=== PATIENT | female | born 1950 | race Caucasian/White ===

== ENCOUNTER 2021-03-22 20:34 | Observation (INO) | payer MEDICARE, MEDICAID, SELFPAY ==
[2021-03-22 20:35] VITALS: BP 138/76; PULSE 89; RESP 18; TEMP 36.6; O2SAT 97; BMI 22.4
--- NOTE | 2021-03-22 21:21 | RAD_ITS ---
INDICATION: Cough EXAMINATION/TECHNIQUE: X-RAY - XR Chest 1 View COMPARISON: None. FINDINGS: The lungs are clear. Tortuous and calcified thoracic aorta. The heart is not enlarged. No pleural effusion or pneumothorax. No acute osseous abnormalities. RAD/Chest 1 View (Portable) IMPRESSION: No acute radiographic abnormalities. Electronically Signed: Fer Devine MD at 22:47 EDT Tel , Service support ,
--- NOTE | 2021-03-22 21:21 | EKG12_ITS ---
Test Reason : DYSRYTHMIA Blood Pressure : / mmHG Vent. Rate : 078 BPM Atrial Rate : 078 BPM P-R Int : 130 ms QRS Dur : 118 ms QT Int : 404 ms P-R-T Axes : 041 008 005 degrees QTc Int : 460 ms Normal sinus rhythm Incomplete right bundle branch block Nonspecific T wave abnormality Abnormal ECG Confirmed by RO LOPEZ, JERILYN ([id number]), purchase request editor JOSE L JUAREZ ([id number]) on 03/26/2021 1:07:27 PM Referred By: AYDIN Confirmed By:JERILYN STARR MD
--- NOTE | 2021-03-22 21:21 | CT_ITS ---
EXAMINATION : Head CT w/out contrast HISTORY : Altered mental status COMPARISON : None. TECHNIQUE : Multiple contiguous axial images were obtained from the skull base to the vertex without intravenous contrast. A radiation dose optimization technique was used for this scan. FINDINGS : There is no evidence for acute intracranial hemorrhage, mass effect, or midline shift. There is no extra-axial fluid collection. There are periventricular white matter changes consistent with chronic microvascular ischemic disease. There is sulcal widening and ventricular enlargement consistent with cerebral atrophy. There is normal weaver-white differentiation, without CT evidence of acute ischemia or infarct. 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 The skull base and calvarium are unremarkable. The orbits are unremarkable. The paranasal sinuses are clear. The mastoid air cells are well-aerated. The soft tissues are unremarkable. CT/Brain/Head without Contrast IMPRESSION: No acute intracranial abnormality. 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 Chronic involutional and ischemic changes of the brain. Electronically Signed: Fer Devine MD at 22:48 EDT Tel , Service support ,
[2021-03-22 21:47] LABS: Absolute Lymphocyte Count 2.48 X10^3/uL (0.83-4.51); Absolute Neutrophil Count 2.7 X10^3/uL (2.0-7.7); Basophil# 0.05 X10^3/uL; Basophil% 0.8 % (0-1); Eosinophil# 0.42 X10^3/uL; Eosinophils% 6.7 % (0-5); Hematocrit 44.6 % (37-47); Hemoglobin 14.6 g/dL (12.0-15.0); Lymphocyte # 2.48 X10^3/ul (0.83-4.51); Lymphocyte % 39.7 % (19-41); Mean Corp Hgb Conc 32.7 g/dL (32-36); Mean Corpuscular Hgb 30.7 pg (27.0-32.0); Mean Corpuscular Volume 93.9 fL (81-99); Mean Platelet Vol. 10.3 fl (6.2-12.0); Monocyte% 9.6 % (0-10); NRBC Flagged by Analyzer 0 % (0-5); Neutrophil # 2.68 X10^3/uL (2.7-7.7); Platelet Count 250 K/mm3 (150-450); RBC Distribution Width CV 13.5 % (11.6-14.6); RBC Distribution Width SD 46.4 fl (35.1-43.9); Red Blood Count 4.75 M/mm3 (4.2-5.4); White Blood Count 6.2 K/mm3 (4.4-11.0)
[2021-03-22 21:59] VITALS: BP 139/83; PULSE 82; RESP 16; O2SAT 99
[2021-03-22 21:59] LABS: ALB/GLOB Ratio 0.8 RATIO (0.9-2.4); AST(SGOT) 17 U/L (15-37); Alanine Aminotransfer ALT/SGPT 10 U/L (13-56); Albumin, Serum 3.4 g/dL (3.2-5.0); Alkaline Phosphatase 117 U/L (45-117); Anion Gap 3 (5-15); BUN 8 mg/dL (7-18); BUN/Creat Ratio 7.8 RATIO (10-20); Calcium,Total 9.4 mg/dL (8.5-10.1); Chloride 106 mmol/L (98-107); Creatinine, Serum 1.03 mg/dL (0.55-1.02); EST Glomerular Filtration Rate 56 mL/min (>60); Est Glom Filt Rate - Afr Amer 68 mL/min (>60); Estimated Creatinine Clearance 39.15 ml/min; Glucose 102 mg/dL (74-106); Potassium 3.5 mmol/L (3.5-5.1); Protein, Total 7.4 g/dL (6.4-8.2); Sodium Level 139 mmol/L (136-145)
[2021-03-22 22:00] VITALS: PULSE 81; RESP 14; O2SAT 98
[2021-03-22 22:50] LABS: Bacteria 0 SEEN /hpf (None Seen); Mucous, Urine 0 SEEN /hpf (<or=2+); Red Blood Cells-Urine 0 SEEN /hpf (0-5); White Blood Cells 0 SEEN /hpf (0-5)
[2021-03-22 22:51] LABS: Color, Urine Yellow (Yellow); Glucose, Dipstick Normal (Normal); Ketone-Dipstick Negative (Negative); Leukocyte Esterase-Dipstick Negative /ul (Negative); Nitrite-Dipstick Negative (Negative); Occult Blood-Urine Negative /ul (Negative); Protein-Dipstick Negative (Negative); Urine Bilirubin Dipstick Negative (Negative); Urine Clarity Sl. Cloudy (Clear); Urine Urobilinogen Normal (Normal)
[2021-03-22 22:56] LABS: Squamous Epithelial Cells - UA 0-5 SEEN /hpf (5-10)
[2021-03-22 23:00] VITALS: BP 116/74; PULSE 82; RESP 15; O2SAT 94
--- NOTE | 2021-03-22 23:36 | EX.ED.DYSGE1 ---
HPI History of Present Illness Chief Complaint: Confusion Informant: patient and EMS Onset/Context/Timing Context: Gradual Onset Timing: Continuous Quality: Confused Location: Generalized Worsened by: Nothing Relieved by: Nothing Narrative Narrative: Patient presents with confusion that became worse today. Patient was found wandering outside. Patient lives at home with family however the family states that patient has been wandering off more frequently. Family states that patient is getting more difficult to care for at home. Patient is confused and is a poor historian. Patient does not know why she is here. [facility] Medical History COPD (chronic obstructive pulmonary disease) Dementia Home Medications Aricept 03/22/21 [History Last Taken Unknown] albuterol sulfate 2.5 mg INHALATION Q4H PRN 03/22/21 [History Last Taken Unknown] alprazolam [Xanax] 1 mg PO TID 03/22/21 [History Last Taken Unknown] fluticasone propion-salmeterol [Advair HFA] 1 - 2 puff INHALATION BID 03/22/21 [History Last Taken Unknown] memantine 10 mg PO BID 03/22/21 [History Last Taken Unknown] pregabalin 100 mg PO BID 03/22/21 [History Last Taken Unknown] Allergy/AdvReac Type Severity Reaction Status Date / Time Penicillins Allergy PT UNSURE Verified 03/22/21 20:39 OF REACTION tramadol [From Ultram] AdvReac Other Verified 03/22/21 22:08 Social History Smoking Status: Current every day smoker tobacco type: cigarettes ROS ROS ED Review of Systems ROS Unobtainable: due to mental condition EXAM Physical Exam Const Vital Signs: 03/22/21 20:35 03/22/21 21:59 03/22/21 22:00 Temperature 97.8 F Temperature Source Oral Pulse Rate 89 82 81 Respiratory Rate 18 16 14 Blood Pressure 138/76 H 139/83 H Blood Pressure Mean 96 101 Pulse Ox 97 99 98 Oxygen Delivery Method Room Air Room Air Room Air 03/22/21 23:00 03/23/21 00:00 03/23/21 00:17 Temperature 97.9 F Temperature Source Temporal Pulse Rate 82 82 81 Respiratory Rate 15 12 14 Blood Pressure 116/74 126/77 H 126/77 H Blood Pressure Mean 88 93 93 Pulse Ox 94 92 93 Oxygen Delivery Method Room Air Room Air Room Air Positive well nourished and well developed General Appearance ED: well developed HEENT Reports moist mucous membranes Neck supple and no JVD Resp normal respiratory effort and clear to auscultation bilaterally Cardio regular rate and regular rhythm GI normal to inspection, nondistended, normoactive bowel sounds and non-tender Palpation: soft Neuro CN's II-XII intact bilaterally and no sensory deficits noted Neuro Narrative: Patient is alert and oriented to person and place only. Sensorium / Orientation: alert and orientation impaired Motor Exam: strength 5/5 throughout MDM MDM MDM Narrative Medical decision making narrative: CT scan of the brain was obtained. There is no acute intracranial abnormality. This was interpreted by the radiologist and reviewed by myself. Portable 1 view chest x-ray was obtained. On my interpretation, lung disla are clear. There is normal cardiac silhouette. Bony thorax is normal. There is no acute process noted. Radiologist also interpreted the x-ray and agrees. EKG was obtained. On my interpretation, it showed a normal sinus rhythm with a rate of 78. UT interval, QRS interval, and QTc intervals were all normal. [place] was normal. There is an incomplete right bundle branch block. There are no acute ST or T wave changes. CBC and comprehensive metabolic profile were obtained were within normal limits. Urinalysis does not show any evidence of urinary tract infection. Family reports patient is unable to care for herself at home and they are unable to care for her at home. Case was discussed with the hospitalist for admission for placement in a long-term. Patient will be admitted for observation. Lab Data Attestation: I reviewed the patient's lab results. Labs: Laboratory Results - last 24 hr 03/22/21 03/22/21 03/22/21 20:45 20:45 22:45 WBC 6.2 RBC 4.75 Hgb 14.6 Hct 44.6 MCV 93.9 MCH 30.7 MCHC 32.7 RDW Std Deviation 46.4 H RDW Coeff of Kendall 13.5 Plt Count 250 MPV 10.3 Immature Gran % (Auto) 0.200 Neut % (Auto) 43.0 L Lymph % (Auto) 39.7 [place] % (Auto) 9.6 Eos % (Auto) 6.7 H Baso % (Auto) 0.8 Absolute Neuts (auto) 2.7 Absolute Lymphs (auto) 2.48 Nucleated RBC % 0 Sodium 139 Potassium 3.5 Chloride 106 Carbon Dioxide 30.0 Anion Gap 3 L BUN 8 Creatinine 1.03 H Estim Creat Clear Calc 39.15 Est GFR (MDRD) Af Amer 68 Est GFR (MDRD) Non-Af 56 L BUN/Creatinine Ratio 7.8 L Glucose 102 Calcium 9.4 Total Bilirubin 0.40 AST 17 ALT 10 L Alkaline Phosphatase 117 Total Protein 7.4 Albumin 3.4 Globulin 4.0 Albumin/Globulin Ratio 0.8 L Urine Color Yellow Urine Clarity Sl. Cloudy Urine pH 6.0 Ur Specific [place] 1.010 Urine Protein Negative Urine Glucose (UA) Normal Urine Ketones Negative Urine Occult Blood Negative Urine Nitrite Negative Urine Bilirubin Negative Urine Urobilinogen Normal Ur Leukocyte Esterase Negative Urine RBC 0 SEEN Urine WBC 0 SEEN Ur Squamous Epith Cells 0-5 SEEN Urine Bacteria 0 SEEN Urine Mucus 0 SEEN Radiography Chest X-Ray - ED: 1 View, Read by ED Physician, Read by Radiologist and Normal Diagnostic Testing: Radiology Impression Brain CT 03/22/21 21:21 IMPRESSION: No acute intracranial abnormality. 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 Chronic involutional and ischemic changes of the brain. Electronically Signed: Fer Devine MD at 22:48 EDT Tel , Service support , Chest X-Ray 03/22/21 21:21 IMPRESSION: No acute radiographic abnormalities. Electronically Signed: Fer Devine MD at 22:47 EDT Tel , Service support , EKG Initial EKG: Attestation: I personally reviewed and interpreted this EKG as follows: Interpretation: Sinus Rhythm (78), No Acute Injury Pattern, RBBB (Incomplete) and Non-Specific ST Changes Prior EKG tracings: not available for review Treatment and Re-Evaluation Vital Sign Attestation:: Vital signs were reviewed prior to admission. They are all stable. Discharge Plan Triage Chief Complaint: Confusion Other Complaint: Mental Health ED Provider: Wilmer Owen Dx/Rx/DC Orders Clinical Impression: Dementia Prescriptions: No Action Aricept RF: 0 albuterol sulfate 2.5 mg /3 mL (0.083 %) Solution For Nebulization 2.5 mg INHALATION Q4H PRN (Reason: Wheezing) RF: 0 alprazolam [Xanax] 1 mg Tablet 1 mg PO TID RF: 0 memantine 5 mg tablet 10 mg PO BID RF: 0 pregabalin 100 mg capsule 100 mg PO BID RF: 0 Advair HFA 115-21 mcg/actuation HFA aerosol inhaler 1 - 2 puff INHALATION BID RF: 0 Primary Care Provider: Rehan Connelly Referrals: Rehan Connelly DO [Primary Care Provider] - Disposition Disposition: Acute Care [facility]
[2021-03-23] VITALS (9 sets, daily range): BP systolic 125–152; BP diastolic 68–90; PULSE 79–96; RESP 12–16; TEMP 36.4–36.7; O2SAT 92–97; BMI 21.7
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
--- NOTE | 2021-03-23 01:31 | ED.RN ---
left message for family to let them know that patient is being admitted
[2021-03-23] MEDS: Acetaminophen 325 MG Tablet 650 MG PO ×3 (01:53→15:02)
[2021-03-23] MEDS: Budesonide Respules 0.5 MG/2 ML AMPUL.NEB. INHALATION (07:36)
[2021-03-23] MEDS: Albuterol 2.5 MG/3 ML VIAL.NEB. INHALATION ×2 (07:36→13:31)
[2021-03-23 08:33] LABS: Thyroid Stim Hormone (TSH) 1.64 uIU/mL (0.358-3.74)
[2021-03-23] MEDS: Memantine Hydrochloride 10 MG Tablet PO (09:36)
[2021-03-23] MEDS: Enoxaparin 40 MG/0.4 ML Syringe SC (09:37)
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
--- NOTE | 2021-03-23 10:15 | PN.HOSP_ITS ---
Documented by User: Fan BAEZA 03/23/21 10:29 Subjective Subjective Patient is a 70-year-old female comfortably resting in bed and eating breakfast, alert and oriented x1 (person). Patient is able to converse casually and is pleasant, however speech is tangential. It is unclear how much patient under stands about her current condition, therefore insight is limited. Objective Data Objective Data Vital Signs: Vital Signs Temp Pulse Resp BP Pulse Ox 98.0 F 96 16 152/90 H 93 03/23/21 09:05 03/23/21 09:05 03/23/21 09:05 03/23/21 09:05 03/23/21 09:05 Oxygen Delivery Method Room Air Weight: 103 lb 9.876 oz Body Mass Index (BMI) 21.7 Intake & Output: Intake and Output for Last 24 Hours 03/21/21 03/22/21 03/23/21 23:59 23:59 23:59 Intake Total 500 / 500 Balance 500 / 500 Lab / Micro Data Result Diagrams: 03/22/21 20:45 03/22/21 20:45 Labs: Laboratory Results - last 24 hr 03/22/21 03/22/21 03/22/21 20:45 20:45 22:45 WBC 6.2 RBC 4.75 Hgb 14.6 Hct 44.6 MCV 93.9 MCH 30.7 MCHC 32.7 RDW Std Deviation 46.4 H RDW Coeff of Kendall 13.5 Plt Count 250 MPV 10.3 Immature Gran % (Auto) 0.200 Neut % (Auto) 43.0 L Lymph % (Auto) 39.7 [place] % (Auto) 9.6 Eos % (Auto) 6.7 H Baso % (Auto) 0.8 Absolute Neuts (auto) 2.7 Absolute Lymphs (auto) 2.48 Nucleated RBC % 0 Sodium 139 Potassium 3.5 Chloride 106 Carbon Dioxide 30.0 Anion Gap 3 L BUN 8 Creatinine 1.03 H Estim Creat Clear Calc 39.15 Est GFR (MDRD) Af Amer 68 Est GFR (MDRD) Non-Af 56 L BUN/Creatinine Ratio 7.8 L Glucose 102 Calcium 9.4 Total Bilirubin 0.40 AST 17 ALT 10 L Alkaline Phosphatase 117 Ammonia Total Protein 7.4 Albumin 3.4 Globulin 4.0 Albumin/Globulin Ratio 0.8 L TSH Urine Color Yellow Urine Clarity Sl. Cloudy Urine pH 6.0 Ur Specific [employer] [employer] 1.010 Urine Protein Negative Urine Glucose (UA) Normal Urine Ketones Negative Urine Occult Blood Negative Urine Nitrite Negative Urine Bilirubin Negative Urine Urobilinogen Normal Ur Leukocyte Esterase Negative Urine RBC 0 SEEN Urine WBC 0 SEEN Ur Squamous Epith Cells 0-5 SEEN Urine Bacteria 0 SEEN Urine Mucus 0 SEEN 03/23/21 03/23/21 06:12 06:12 WBC RBC Hgb Hct MCV MCH MCHC RDW Std Deviation RDW Coeff of Kendall Plt Count MPV Immature Gran % (Auto) Neut % (Auto) Lymph % (Auto) [place] % (Auto) Eos % (Auto) Baso % (Auto) Absolute Neuts (auto) Absolute Lymphs (auto) Nucleated RBC % Sodium Potassium Chloride Carbon Dioxide Anion Gap BUN Creatinine Estim Creat Clear Calc Est GFR (MDRD) Af Amer Est GFR (MDRD) Non-Af BUN/Creatinine Ratio Glucose Calcium Total Bilirubin AST ALT Alkaline Phosphatase Ammonia 22.0 Total Protein Albumin Globulin Albumin/Globulin Ratio TSH 1.64 Urine Color Urine Clarity Urine pH Ur Specific [place] [employer] Urine Protein Urine Glucose (UA) Urine Ketones Urine Occult Blood Urine Nitrite Urine Bilirubin Urine Urobilinogen Ur Leukocyte Esterase Urine RBC Urine WBC Ur Squamous Epith Cells Urine Bacteria Urine Mucus Radiography Diagnostic Testing: Radiology Impression Brain CT 03/22/21 21:21 IMPRESSION: No acute intracranial abnormality. 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 Chronic involutional and ischemic changes of the brain. Electronically Signed: Fer Devine MD at 22:48 EDT Tel , Service support , Chest X-Ray 03/22/21 21:21 IMPRESSION: No acute radiographic abnormalities. Electronically Signed: Fer Devine MD at 22:47 EDT Tel , Service support , Physical Exam Narrative See subjective. Const alert Orientation / Consciousness: disoriented Exam Limitations: altered mental status HEENT head/scalp atraumatic and moist oral mucous membranes Head and Scalp: normocephalic Eyes EOMs intact bilaterally and conjunctivae normal Neck no lymphadenopathy, supple and no JVD Resp normal respiratory effort, no retractions, no use of accessory muscles and clear to auscultation bilaterally Cardio regular rate, regular rhythm, no murmurs and no JVD GI normal to inspection, nondistended, normoactive bowel sounds, soft to palpation and non-tender Extremity normal to inspection, full ROM and no clubbing, cyanosis or edema Skin no rashes or lesions noted, no wounds and skin turgor normal Neuro CN's II-XII intact bilaterally Psych affect normal Assessment & Plan Assessment/Plan (1) Dementia: QUALIFIERS: Dementia behavioral disturbance: without behavioral disturbance Dementia type: unspecified type Qualified Code(s): F03.90 - Unspecified dementia without behavioral disturbance PLAN: Day 2: See subjective. Discharge planning: It is desire of patient's ophthalmic tech/niece that patient be placed. This option was discussed with patient, who is not agreeable to placement and does not want to feel like she is being thrown aside. Patient is only A&O to self, and does not appear fit to make decisions for herself. Will contact patient's niece for disposition planning. 1) Dementia Patient only alert and oriented to self, not fit to make decisions for herself. Patient already on donepezil and memantine, according to H&P it is unclear whether patient is compliant with medications. Brain CT does not demonstrate any evidence of acute ischemia or infarct. Ammonia and TSH within normal limits. Plan; continue home meds, coordinate with niece for disposition planning to SNF. 2) COPD Continue home inhalers, albuterol as needed. 3) tobacco abuse Cessation advised, nicotine patch ordered. DVT prophylaxis -Lovenox Patient seen by Fan Mason PA-C, under the supervision of Dr. Tyler. Documented by User: Dr. Madiha Tyler MD 03/23/21 14:21 Objective Data Lab / Micro Data Result Diagrams: 03/22/21 20:45 03/22/21 20:45
--- NOTE | 2021-03-23 10:41 | CASEMGMT ---
Social Work Note HCPOA and LW are on pt's chart. Radha Castle PRECISION INSTRUMENT MAKER AND REPAIRER, SLIP MIXER
--- NOTE | 2021-03-23 11:11 | CASEMGMT ---
Addendum entered by Radha Castle 03/23/21 11:43: ELIJAH faxed PT/OT to [facility]. Original Note: Social Work Note SW updated that pt's niece Rashmi, who is HCPOA, is requesting SNF for pt. Per progress notes, pt is only alert and orientated x1 and doesn't appear fit to make decisions for self. Rashmi reported to RN JONH that she has no idea on which SNF for pt. ELIJAH placed a call to Rashmi and verbally provided a list of SNF providers including quality and resource use data and consistent with the patient?s preferred geographic region, medical needs, and insurance network. Rashmi preferred provider is [facility]. ELIJAH placed a call to Gretchen at [facility] and provided referral. ELIJAH faxed referral to [facility], will fax PT/OT when available. Plan: SNF pending acceptance Radha Castle WIND ENERGY TECHNICIAN, INDIRECT FIRE INFANTRYMAN
--- NOTE | 2021-03-23 12:26 | TREXTCAR_ITS ---
Documented by User: Fan BAEZA 03/23/21 12:30 Diet 03/23/21 02:12 Diet: Regular - General Food consistency:: Regular Liquid Consistency:: Regular/Thin Problem/Diagnosis (1) Dementia: Status: Acute Allergies/Procedures Done in Hospital Allergies Penicillins Allergy (Verified 03/22/21 20:39) PT UNSURE OF REACTION tramadol [From Ultram] Adverse Reaction (Verified 03/22/21 22:08) Other increased agitation Type of Care/Length of Stay Estimated LOS: Convalescent Care Less Than 30 days Type of Care Needed: Skilled Rehab Potential: Fair Prognosis: Fair Additional Orders/Day of Discharge Day of Discharge: 03/23/21 Discharge Plan Admission Admit Date/Time: 03/23/21 00:50 Primary Reason for Your Visit: Confusion Attending Provider: Madiha Tyler Primary Care Provider: Rehan Connelly Discharge Orders/Prescriptions Prescriptions: Continued Aricept 5 mg PO/SL QHS RF: 0 albuterol sulfate 2.5 mg /3 mL (0.083 %) Solution For Nebulization 2.5 mg INHALATION Q4H PRN (Reason: Wheezing) RF: 0 alprazolam [Xanax] 1 mg Tablet 1 mg PO TID RF: 0 memantine 5 mg tablet 10 mg PO BID RF: 0 pregabalin 100 mg capsule 100 mg PO BID RF: 0 Advair HFA 115-21 mcg/actuation HFA aerosol inhaler 1 - 2 puff INHALATION BID RF: 0 Referrals / Follow Up: Rehan Connelly DO [Primary Care Provider] - Within 2 Weeks Disposition Disposition (needs filled in before D/C Order can be placed): [facility] Documented by User: Dr. Madiha Tyler MD 03/23/21 14:21 Allergies/Procedures Done in Hospital Allergies Penicillins Allergy (Verified 03/22/21 20:39) PT UNSURE OF REACTION tramadol [From Ultram] Adverse Reaction (Verified 03/22/21 22:08) Other increased agitation Discharge Plan Admission Admit Date/Time: 03/23/21 00:50 Primary Reason for Your Visit: Confusion Attending Provider: Madiha Tyler Primary Care Provider: Rehan Connelly Discharge Orders/Prescriptions Prescriptions: Continued Aricept 5 mg PO/SL QHS RF: 0 albuterol sulfate 2.5 mg /3 mL (0.083 %) Solution For Nebulization 2.5 mg INHALATION Q4H PRN (Reason: Wheezing) RF: 0 alprazolam [Xanax] 1 mg Tablet 1 mg PO TID RF: 0 memantine 5 mg tablet 10 mg PO BID RF: 0 pregabalin 100 mg capsule 100 mg PO BID RF: 0 Advair HFA 115-21 mcg/actuation HFA aerosol inhaler 1 - 2 puff INHALATION BID RF: 0 Referrals / Follow Up: Rehan Connelly DO [Primary Care Provider] - Within 2 Weeks Disposition Disposition (needs filled in before D/C Order can be placed): Penitentiary Facility
--- NOTE | 2021-03-23 12:52 | DS.PCM_ITS ---
Documented by User: Fan BAEZA 03/23/21 12:55 Providers Date of Admission: 03/23/21 Primary Care Physician: Dr. Rehan Connelly DO Reason For Visit: DEMENTIA Diagnosis Discharge Diagnosis (1) Dementia: Status: Acute Code(s): F03.90 - Unspecified dementia without behavioral disturbance Qualifiers: Dementia behavioral disturbance: without behavioral disturbance Dementia type: unspecified type Qualified Code(s): F03.90 - Unspecified dementia without behavioral disturbance Medications at Discharge Home Medications Advair HFA 1 - 2 puff INHALATION BID 03/22/21 Aricept 5 mg PO/SL QHS 03/22/21 albuterol sulfate 2.5 mg INHALATION Q4H PRN 03/22/21 alprazolam [Xanax] 1 mg PO TID 03/22/21 memantine 10 mg PO BID 03/22/21 pregabalin 100 mg PO BID 03/22/21 Hospital Course Summary of Care Provided Minutes Spent on Discharge: 35 Hospital Course: Disposition: Patient's niece has selected [facility] for placement for patient, as she admits that she can no longer care for her aunt. Patient voices concern over going to SNF, however is not of sound mind to make decisions for herself as she appears chronically confused due to her underlying dementia. Patient to be discharged today. 1) Dementia Patient only alert and oriented to self, not fit to make decisions for herself. Patient already on donepezil and memantine, according to H&P it is unclear whether patient is compliant with medications. Brain CT does not demonstrate any evidence of acute ischemia or infarct. Ammonia and TSH within normal limits. Plan; continue home meds, coordinate with niece for disposition planning to SNF. 2) COPD Continue home inhalers, albuterol as needed. 3) tobacco abuse Cessation advised. Patient seen by Fan Mason PA-C, under the supervision of Dr. Tyler. Physical Exam Narrative Patient is a 70-year-old female comfortably resting in bed and eating breakfast, alert and oriented x1 (person). Patient is able to converse casually and is pleasant, however speech is tangential. It is unclear how much patient understands about her current condition, therefore insight is limited. Const alert Orientation / Consciousness: oriented to person and confused Exam Limitations: altered mental status HEENT normocephalic, head/scalp atraumatic and hearing grossly normal bilaterally Eyes EOMs intact bilaterally and conjunctivae normal Neck no lymphadenopathy, supple and no JVD Resp normal respiratory effort, no retractions, no use of accessory muscles and clear to auscultation bilaterally Cardio regular rate, regular rhythm, no murmurs and no JVD GI normal to inspection, nondistended, normoactive bowel sounds, soft to palpation and non-tender Extremity normal to inspection, full ROM and no clubbing, cyanosis or edema Skin no rashes or lesions noted, no wounds and skin turgor normal Neuro CN's II-XII intact bilaterally Psych affect normal Weight / BMI Weight Weight: 103 lb 9.876 oz Body Mass Index (BMI) 21.7 ABG / Lab / Microbiology Data Result Diagrams: 03/22/21 20:45 03/22/21 20:45 Laboratory: Laboratory Results - last 24 hr 03/22/21 03/22/21 03/22/21 20:45 20:45 22:45 WBC 6.2 RBC 4.75 Hgb 14.6 Hct 44.6 MCV 93.9 MCH 30.7 MCHC 32.7 RDW Std Deviation 46.4 H RDW Coeff of Kendall 13.5 Plt Count 250 MPV 10.3 Immature Gran % (Auto) 0.200 Neut % (Auto) 43.0 L Lymph % (Auto) 39.7 [place] % (Auto) 9.6 Eos % (Auto) 6.7 H Baso % (Auto) 0.8 Absolute Neuts (auto) 2.7 Absolute Lymphs (auto) 2.48 Nucleated RBC % 0 Sodium 139 Potassium 3.5 Chloride 106 Carbon Dioxide 30.0 Anion Gap 3 L BUN 8 Creatinine 1.03 H Estim Creat Clear Calc 39.15 Est GFR (MDRD) Af Amer 68 Est GFR (MDRD) Non-Af 56 L BUN/Creatinine Ratio 7.8 L Glucose 102 Calcium 9.4 Total Bilirubin 0.40 AST 17 ALT 10 L Alkaline Phosphatase 117 Ammonia Total Protein 7.4 Albumin 3.4 Globulin 4.0 Albumin/Globulin Ratio 0.8 L TSH Urine Color Yellow Urine Clarity Sl. Cloudy Urine pH 6.0 Ur Specific [place] 1.010 Urine Protein Negative Urine Glucose (UA) Normal Urine Ketones Negative Urine Occult Blood Negative Urine Nitrite Negative Urine Bilirubin Negative Urine Urobilinogen Normal Ur Leukocyte Esterase Negative Urine RBC 0 SEEN Urine WBC 0 SEEN Ur Squamous Epith Cells 0-5 SEEN Urine Bacteria 0 SEEN Urine Mucus 0 SEEN 03/23/21 03/23/21 06:12 06:12 WBC RBC Hgb Hct MCV MCH MCHC RDW Std Deviation RDW Coeff of Kendall Plt Count MPV Immature Gran % (Auto) Neut % (Auto) Lymph % (Auto) [place] % (Auto) Eos % (Auto) Baso % (Auto) Absolute Neuts (auto) Absolute Lymphs (auto) Nucleated RBC % Sodium Potassium Chloride Carbon Dioxide Anion Gap BUN Creatinine Estim Creat Clear Calc Est GFR (MDRD) Af Amer Est GFR (MDRD) Non-Af BUN/Creatinine Ratio Glucose Calcium Total Bilirubin AST ALT Alkaline Phosphatase Ammonia 22.0 Total Protein Albumin Globulin Albumin/Globulin Ratio TSH 1.64 Urine Color Urine Clarity Urine pH Ur Specific [place] Urine Protein Urine Glucose (UA) Urine Ketones Urine Occult Blood Urine Nitrite Urine Bilirubin Urine Urobilinogen Ur Leukocyte Esterase Urine RBC Urine WBC Ur Squamous Epith Cells Urine Bacteria Urine Mucus Radiography Diagnostic Testing: Radiology Impression Brain CT 03/22/21 21:21 IMPRESSION: No acute intracranial abnormality. 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 Chronic involutional and ischemic changes of the brain. Electronically Signed: Fer Devine MD at 22:48 EDT Tel , Service support , Chest X-Ray 03/22/21 21:21 IMPRESSION: No acute radiographic abnormalities. Electronically Signed: Fer Devine MD at 22:47 EDT Tel , Service support , Meaningful Use Info Meaningful Use Diagnoses (Choose all that apply): None applicable Discharge Plan Admission Admit Date/Time: 03/23/21 00:50 Primary Reason for Your Visit: Confusion Attending Provider: Madiha Tyler Primary Care Provider: Rehan Connelly Discharge Orders/Prescriptions Prescriptions: Continued Aricept 5 mg PO/SL QHS RF: 0 albuterol sulfate 2.5 mg /3 mL (0.083 %) Solution For Nebulization 2.5 mg INHALATION Q4H PRN (Reason: Wheezing) RF: 0 alprazolam [Xanax] 1 mg Tablet 1 mg PO TID RF: 0 memantine 5 mg tablet 10 mg PO BID RF: 0 pregabalin 100 mg capsule 100 mg PO BID RF: 0 Advair HFA 115-21 mcg/actuation HFA aerosol inhaler 1 - 2 puff INHALATION BID RF: 0 Referrals / Follow Up: Rehan Connelly DO [Primary Care Provider] - Within 2 Weeks Disposition Disposition (needs filled in before D/C Order can be placed): Senior Living Facility Documented by User: Dr. Madiha Tyler MD 03/23/21 14:21 Providers Date of Admission: 03/23/21 Reason For Visit: DEMENTIA Medications at Discharge Home Medications Advair HFA 1 - 2 puff INHALATION BID 03/22/21 Aricept 5 mg PO/SL QHS 03/22/21 albuterol sulfate 2.5 mg INHALATION Q4H PRN 03/22/21 alprazolam [Xanax] 1 mg PO TID 03/22/21 memantine 10 mg PO BID 03/22/21 pregabalin 100 mg PO BID 03/22/21 ABG / Lab / Microbiology Data Result Diagrams: 03/22/21 20:45 03/22/21 20:45 Discharge Plan Admission Admit Date/Time: 03/23/21 00:50 Primary Reason for Your Visit: Confusion Attending Provider: Madiha Tyler Primary Care Provider: Rehan Connelly Discharge Orders/Prescriptions Prescriptions: Continued Aricept 5 mg PO/SL QHS RF: 0 albuterol sulfate 2.5 mg /3 mL (0.083 %) Solution For Nebulization 2.5 mg INHALATION Q4H PRN (Reason: Wheezing) RF: 0 alprazolam [Xanax] 1 mg Tablet 1 mg PO TID RF: 0 memantine 5 mg tablet 10 mg PO BID RF: 0 pregabalin 100 mg capsule 100 mg PO BID RF: 0 Advair HFA 115-21 mcg/actuation HFA aerosol inhaler 1 - 2 puff INHALATION BID RF: 0 Referrals / Follow Up: Rehan Connelly DO [Primary Care Provider] - Within 2 Weeks Disposition Disposition (needs filled in before D/C Order can be placed): Senior Living Facility Charges/Coding Multi Select Codes Visit Charges Observation E&M Codin Observ/hosp same date L2 Addendum Addendum: Patient seen by Fan Mason PA-C under my supervision Patient is a 70-year-old female with a significant history of dementia, likely Alzheimer's who left her house and was refusing to go back. She also also thrown her medications into the trash and said she was walking to [place] to retrieve her dog who was being cared for in [place]. She was therefore adm itted for dementia with behavioral disturbance. CBC and BMP were unremarkable and urinalysis showed no evidence of UTI. Patient was admitted for placement as family could not care for her anymore. Hospital stay was uneventful and patient was accepted to [facility] on 03/23/2021. She is follow-up with her primary care doctor within 1 to 2 weeks. Patient seen and examined prior to discharge. She had no complaints. She was alert and oriented to self but was confused about where she was in the year. Review of sounds otherwise negative. O/E alert Orientation / Consciousness: oriented to person and confused Exam Limitations: altered mental status HEENT normocephalic, head/scalp atraumatic and hearing grossly normal bilaterally Eyes EOMs intact bilaterally and conjunctivae normal Neck no lymphadenopathy, supple and no JVD Resp normal respiratory effort, no retractions, no use of accessory muscles and clear to auscultation bilaterally Cardio regular rate, regular rhythm, no murmurs and no JVD GI normal to inspection, nondistended, normoactive bowel sounds, soft to palpation and non-tender Extremity normal to inspection, full ROM and no clubbing, cyanosis or edema Skin no rashes or lesions noted, no wounds and skin turgor normal Neuro CN's II-XII intact bilaterally Psych affect normal, confused Rest as per Fan Mason PA-C's note which I have reviewed and endorsed.
--- NOTE | 2021-03-23 15:09 | CASEMGMT ---
Social Work Note SW received message from Gretchen at [facility] stating they are able to accept pt today. PA updated. ELIJAH faxed completed discharge paperwork to [facility] including transfer to extended care facility, signed medication list, any scripts, COVID test/tool, and PAS/RR. Original in SNF folder and copy on pt's chart. ELIJAH completed PAS/RR in [facility]. Original in SNF Folder and copy on pt's chart. ELIJAH spoke with RN, pt can transport via wheelchair van. SW accessed trip assist and arranged transportation via wheelchair van for 3:30pm. Transportation form completed and placed on SNF folder and copy on pt's chart. ELIJAH placed a call to pt's teeteeece Rashmi and updated her that [facility] has accepted pt, pt will discharge there today at 3:30pm. Rashmi states understanding, agreeable to [facility]. Rashmi states she will be at [facility] tomorrow to complete paperwork and will see pt then at [facility]. SW in to speak with pt. Pt is alert and orientated x1-2. Pt is alert to name, somewhat time, not place. Pt states it is March 2020 and is currently in [place]. ELIJAH spoke with pt about going to [facility] and how pt is going for stabilization, therapy, etc. ELIJAH informed pt that Rashmi will see pt while pt is at [facility]. Pt states understanding, agreeable to plan. ELIJAH placed a call to Gretchen at [facility] and updated her on transportation time. Gretchen states understanding. Plan: [facility] skilled today with physician's transporting pt via wheelchair van at 3:30pm Radha MORRISSEY, OFFICE LEAD
== END 2021-03-23 15:35 ==
LOC: ED 03-23 00:57 → MS3 03-23 01:00
PROVIDERS: Admitting Provider Hospitalist; Emergency Provider Emergency Medicine; PCP Family Medicine; Visit Provider Student in an Organized Health Care Education/Training Program
DX: F03.91 Unspecified dementia, unspecified severity, with behavioral disturbance (principal); J44.9 Chronic obstructive pulmonary disease, unspecified; F17.210 Nicotine dependence, cigarettes, uncomplicated; Z79.51 Long term (current) use of inhaled steroids; Z79.899 Other long term (current) drug therapy
CPT/HCPCS: 36415; 70450; 71045; 80053; 81001; 82140; 84443; 85025; 87426; 93005; 94640; 96360; 96372; 97162; 97166; 99218; 99251; 99285; 99406; J7040; A4216; G0378; G0463

== ENCOUNTER 2021-04-22 18:04 | Emergency (ER) | payer MEDICARE, MEDICAID, SELFPAY ==
[2021-03-23 02:13] VITALS: BMI 21.7
[2021-04-22] VITALS (8 sets, daily range): BP systolic 107–128; BP diastolic 68–90; PULSE 92–105; RESP 15–18; TEMP 36.6–36.9; O2SAT 88–94; BMI 24.3
--- NOTE | 2021-04-22 18:42 | CT_ITS ---
STUDY: CT BRAIN WITHOUT CONTRAST REASON FOR EXAM: Female, 71 years old. Altered mental status. RADIATION DOSAGE (If Supplied By Facility): CTDIvol = ( 44.99 ) mGy, DLP = ( 829.85 ) mGycm TECHNIQUE: Transaxial CT imaging of the brain was performed without administration of intravenous contrast material. Individualized dose optimization techniques were used for this CT. COMPARISON: 03/22/2021. FINDINGS: Normal soft tissue structures. Normal calvarium. There is mild cerebral atrophy with widening of the extra-axial spaces and ventricular dilatation. There are areas of decreased attenuation within the white matter tracts of the supratentorial brain, consistent with microvascular disease changes. Normal basal ganglia and thalami. Normal brainstem. Normal cerebellum. There is no intracranial hemorrhage. There are no findings of an acute ischemic infarction. Normal visualized paranasal sinuses. CT/Brain/Head without Contrast IMPRESSION: Chronic involutional changes without evidence of acute intracranial or calvarial abnormality. No major interval change. Electronically Signed: Dusty Coto DO at 19:44 EDT Tel [phone], Service support ,
--- NOTE | 2021-04-22 18:42 | EKG12_ITS ---
Test Reason : ALT LOC Blood Pressure : / mmHG Vent. Rate : 098 BPM Atrial Rate : 098 BPM P-R Int : 126 ms QRS Dur : 114 ms QT Int : 340 ms P-R-T Axes : 028 003 -11 degrees QTc Int : 434 ms Normal sinus rhythm Low voltage QRS Incomplete right bundle branch block Confirmed by PAL LOPEZ, KRISH ([id number]), loan expeditor JOSE L JUAREZ ([id number]) on 04/25/2021 9:50:49 AM Referred By: AMY Confirmed By:KRISH AGUILLON MD
--- NOTE | 2021-04-22 18:43 | EX.ED.DYSGE1 ---
HPI History of Present Illness Chief Complaint: Alt LOC Narrative Narrative: Patient presenting with her family member for altered mental status for the last 24 hours. Patient has been sleeping more than usual. She does have history of dementia and at baseline is at best and noted to. Patient's family member did not realize that the patient was DNR comfort care only. She was told by the half-way to send her in for evaluation due to the altered mental status. At this point she wants everything done. She states that other than sleepiness she has not had any other complaints. There is no history of falls that is known. Patient is not anticoagulated. Patient is unable to communicate symptoms [facility] Medical History COPD (chronic obstructive pulmonary disease) Dementia Home Medications Advair HFA 1 - 2 puff INHALATION BID 03/22/21 [History Last Taken Unknown] Aricept 5 mg PO/SL QHS 03/22/21 [History Last Taken Unknown] albuterol sulfate 2.5 mg INHALATION Q4H PRN 03/22/21 [History Last Taken Unknown] alprazolam [Xanax] 1 mg PO TID 03/22/21 [History Last Taken Unknown] memantine 10 mg PO BID 03/22/21 [History Last Taken Unknown] pregabalin 100 mg PO BID 03/22/21 [History Last Taken Unknown] oxycodone 5 mg PO Q8H PRN 04/22/21 [History Last Taken Unknown] Allergy/AdvReac Type Severity Reaction Status Date / Time Penicillins Allergy PT UNSURE Verified 04/22/21 18:09 OF REACTION tramadol [From Ultram] AdvReac Other Verified 04/22/21 18:09 Family History Other Cancer Heart disease Surgical History H/O: hysterectomy History of back surgery Social History Smoking Status: Current every day smoker tobacco type: cigarettes ROS ROS ED Review of Systems ROS Unobtainable: due to mental condition, due to mental status and other EXAM Physical Exam Const Vital Signs: 04/22/21 18:05 04/22/21 18:09 04/22/21 18:17 Temperature 98.5 F 98.5 F Temperature Source Oral Oral Pulse Rate 105 H 105 H Respiratory Rate 16 16 Blood Pressure 107/68 107/68 Blood Pressure Mean 81 81 Pulse Ox 92 92 88 Oxygen Delivery Method Room Air Room Air Room Air Oxygen Flow Rate (L/min) 04/22/21 18:18 04/22/21 19:04 04/22/21 19:09 Temperature 98 F Temperature Source Temporal Pulse Rate 99 99 Respiratory Rate 15 Blood Pressure 125/90 H Blood Pressure Mean 101 Pulse Ox 92 93 Oxygen Delivery Method Nasal Cannula Nasal Cannula Oxygen Flow Rate (L/min) 2 2 04/22/21 20:00 Temperature 98 F Temperature Source Temporal Pulse Rate 99 Respiratory Rate 17 Blood Pressure 120/78 Blood Pressure Mean 92 Pulse Ox 93 Oxygen Delivery Method Nasal Cannula Oxygen Flow Rate (L/min) 2 Positive well nourished HEENT Reports moist mucous membranes Negative for trauma Eyes PERRL and EOMs intact bilaterally General Eye ED: Negative for pale conjunctiva or scleral icterus Neck no lymphadenopathy and supple Resp normal respiratory effort and clear to auscultation bilaterally Cardio regular rate and regular rhythm Extremity normal to inspection General Extremety ED: Negative for edema or tenderness General Extremity: Negative for edema Neuro Sensorium / Orientation: orientation impaired and lethargic Skin no rashes or lesions noted and no wounds MDM MDM MDM Narrative Medical decision making narrative: Patient presenting with altered mental status. He is DNR comfort care however her daughter who is power of concrete mixer loader truck mounted wants her evaluated. Patient's lab work-up today is unremarkable. Urinalysis is negative. Renal function and electrolytes are normal. She has no leukocytosis. COVID-19 testing is negative. Chest x-ray on my interpretation shows no acute cardiopulmonary process and the radiologist does agree. EKG is sinus rhythm at [address] elevation or depression on my interpretation. Troponin is negative. CT brain shows no acute intracranial process. On reevaluation patient is alert and talking. I suspect the patient is likely having issues with polypharmacy given that she gets Xanax 1 mg 3 times daily scheduled as well as oxycodone every 8 hours scheduled. Since she is awake and talking now she has no complaints. Discussed with the family member that she should talk with the half-way about backing off on some of her medications. Patient will be transported back to [place] in stable condition. Impression: 1. Altered mental status resolved 2. Polypharmacy Lab Data Attestation: I reviewed the patient's lab results. Labs: Laboratory Results - last 24 hr 04/22/21 04/22/21 04/22/21 18:13 18:13 19:10 WBC 7.4 RBC 4.55 Hgb 13.9 Hct 42.8 MCV 94.1 MCH 30.5 MCHC 32.5 RDW Std Deviation 48.3 H RDW Coeff of [place] 13.9 Plt Count 281 MPV 9.9 Immature Gran % (Auto) 0.300 Neut % (Auto) 66.9 Lymph % (Auto) 22.8 [place] % (Auto) 6.8 Eos % (Auto) 2.7 Baso % (Auto) 0.5 Absolute Neuts (auto) 4.9 Absolute Lymphs (auto) 1.68 Nucleated RBC % 0 Sodium 141 Potassium 4.1 Chloride 107 Carbon Dioxide 28.0 Anion Gap 6 BUN 11 Creatinine 0.75 Estim Creat Clear Calc 42.68 Est GFR (MDRD) Af Amer 98 Est GFR (MDRD) Non-Af 81 BUN/Creatinine Ratio 14.7 Glucose 95 Calcium 9.3 Total Bilirubin 0.30 AST 16 ALT 12 L Alkaline Phosphatase 110 Troponin I High Sens 3.8 Total Protein 7.2 Albumin 3.2 Globulin 4.0 Albumin/Globulin Ratio 0.8 L Urine Color Yellow Urine Clarity Clear Urine pH 8.0 Ur Specific [place] 1.010 Urine Protein Negative Urine Glucose (UA) Normal Urine Ketones Negative Urine Occult Blood Negative Urine Nitrite Negative Urine Bilirubin Negative Urine Urobilinogen Normal Ur Leukocyte Esterase 100 H Urine RBC 0 SEEN Urine WBC 5-10 SEEN Ur Squamous Epith Cells 5-10 SEEN Amorphous Sediment 1+ PHOS Urine Bacteria 0 SEEN Urine Mucus 0 SEEN Radiography Diagnostic Testing: Radiology Impression Brain CT 04/22/21 18:42 IMPRESSION: Chronic involutional changes without evidence of acute intracranial or calvarial abnormality. No major interval change. Electronically Signed: Dusty Coto DO at 19:44 EDT Tel [phone], Service support , Chest X-Ray 04/22/21 18:54 IMPRESSION: Right basilar atelectasis without other change from previous exam. Electronically Signed: Dusty Coto DO at 19:33 EDT Tel [phone], Service support , Discharge Plan Triage Chief Complaint: Alt LOC ED Provider: Louis Bailey Dx/Rx/DC Orders Instructions: ED ALOC Prescriptions: No Action Aricept 5 mg PO/SL QHS RF: 0 albuterol sulfate 2.5 mg /3 mL (0.083 %) Solution For Nebulization 2.5 mg INHALATION Q4H PRN (Reason: Wheezing) RF: 0 alprazolam [Xanax] 1 mg Tablet 1 mg PO TID RF: 0 memantine 5 mg tablet 10 mg PO BID RF: 0 pregabalin 100 mg capsule 100 mg PO BID RF: 0 Advair HFA 115-21 mcg/actuation HFA aerosol inhaler 1 - 2 puff INHALATION BID RF: 0 oxycodone 5 mg Capsule 5 mg PO Q8H PRN (Reason: Pain) RF: 0 Primary Care Provider: Rehan Connelly Referrals: Rehna Connelly DO [Primary Care Provider] - Disposition Disposition: Home, Self Care
[2021-04-22 18:52] LABS: Absolute Lymphocyte Count 1.68 X10^3/uL (0.83-4.51); Absolute Neutrophil Count 4.9 X10^3/uL (2.0-7.7); Basophil# 0.04 X10^3/uL; Basophil% 0.5 % (0-1); Eosinophils% 2.7 % (0-5); Hematocrit 42.8 % (37-47); Hemoglobin 13.9 g/dL (12.0-15.0); Lymphocyte # 1.68 X10^3/ul (0.83-4.51); Lymphocyte % 22.8 % (19-41); Mean Corp Hgb Conc 32.5 g/dL (32-36); Mean Corpuscular Hgb 30.5 pg (27.0-32.0); Mean Corpuscular Volume 94.1 fL (81-99); Mean Platelet Vol. 9.9 fl (6.2-12.0); Monocyte% 6.8 % (0-10); NRBC Flagged by Analyzer 0 % (0-5); Neutrophil # 4.94 X10^3/uL (2.7-7.7); Neutrophil % 66.9 % (47-70); Platelet Count 281 K/mm3 (150-450); RBC Distribution Width CV 13.9 % (11.6-14.6); RBC Distribution Width SD 48.3 fl (35.1-43.9); Red Blood Count 4.55 M/mm3 (4.2-5.4); White Blood Count 7.4 K/mm3 (4.4-11.0)
--- NOTE | 2021-04-22 18:54 | RAD_ITS ---
STUDY: X-RAY CHEST REASON FOR EXAM: Female, 71 years old. Altered mental status. TECHNIQUE: Single AP portable view of the chest. COMPARISON: 03/22/2021. FINDINGS: There is atelectasis at the right lung base. Lungs appear otherwise clear. There is no demonstrated pleural abnormality. Normal size heart. Normal mediastinum and jh. Normal visualized pulmonary arteries. There is atherosclerotic calcification of the aortic arch with tortuosity. The thoracic spine is obscured by the mediastinum. Normal visualized ribs, clavicles, and shoulders. There is no demonstrated abnormality of the visualized soft tissue structures of the upper abdomen. RAD/Chest 1 View (Portable) IMPRESSION: Right basilar atelectasis without other change from previous exam. Electronically Signed: Dusty Coto DO at 19:33 EDT Tel [phone], Service support ,
[2021-04-22 19:08] LABS: ALB/GLOB Ratio 0.8 RATIO (0.9-2.4); AST(SGOT) 16 U/L (15-37); Alanine Aminotransfer ALT/SGPT 12 U/L (13-56); Albumin, Serum 3.2 g/dL (3.2-5.0); Alkaline Phosphatase 110 U/L (45-117); Anion Gap 6 (5-15); BUN 11 mg/dL (7-18); BUN/Creat Ratio 14.7 RATIO (10-20); Calcium,Total 9.3 mg/dL (8.5-10.1); Chloride 107 mmol/L (98-107); Creatinine, Serum 0.75 mg/dL (0.55-1.02); EST Glomerular Filtration Rate 81 mL/min (>60); Est Glom Filt Rate - Afr Amer 98 mL/min (>60); Estimated Creatinine Clearance 42.68 ml/min; Glucose 95 mg/dL (74-106); Potassium 4.1 mmol/L (3.5-5.1); Protein, Total 7.2 g/dL (6.4-8.2); Sodium Level 141 mmol/L (136-145); Troponin-I HS 3.8 pg/mL (3.0-53.7)
[2021-04-22 19:24] LABS: Bacteria 0 SEEN /hpf (None Seen); Mucous, Urine 0 SEEN /hpf (<or=2+); Red Blood Cells-Urine 0 SEEN /hpf (0-5)
[2021-04-22 19:26] LABS: Color, Urine Yellow (Yellow); Glucose, Dipstick Normal (Normal); Ketone-Dipstick Negative (Negative); Leukocyte Esterase-Dipstick 100 /ul (Negative); Nitrite-Dipstick Negative (Negative); Occult Blood-Urine Negative /ul (Negative); Protein-Dipstick Negative (Negative); Urine Bilirubin Dipstick Negative (Negative); Urine Clarity Clear (Clear); Urine Urobilinogen Normal (Normal)
[2021-04-22 19:35] LABS: Amorphous Sediment 1+ PHOS; Squamous Epithelial Cells - UA 5-10 SEEN /hpf (5-10); White Blood Cells 5-10 SEEN /hpf (0-5)
--- NOTE | 2021-04-22 21:46 | ED.RN ---
[facility]
== END 2021-04-22 21:45 | disposition home or self-care (01) ==
PROVIDERS: Emergency Provider Student in an Organized Health Care Education/Training Program; PCP Family Medicine
DX: R41.82 Altered mental status, unspecified (principal); F03.90 Unspecified dementia, unspecified severity, without behavioral disturbance, psychotic disturbance, mood disturbance, and anxiety; Z20.822 Contact with and (suspected) exposure to COVID-19; J44.9 Chronic obstructive pulmonary disease, unspecified; Z66 Do not resuscitate; F17.210 Nicotine dependence, cigarettes, uncomplicated; Z79.51 Long term (current) use of inhaled steroids; Z79.899 Other long term (current) drug therapy
CPT/HCPCS: 70450; 71045; 80053; 81001; 84484; 85025; 87426; 93005; 99285; A4216

== ENCOUNTER 2021-05-06 20:55 | Emergency (ER) | payer MEDICARE, MEDICAID, SELFPAY ==
[2021-05-06 20:56] VITALS: BP 123/84; PULSE 95; RESP 16; TEMP 37; O2SAT 97; BMI 24.3
--- NOTE | 2021-05-06 21:57 | EDS_ITS ---
HPI HPI - Psych History of Present Illness Chief Complaint: Mental Health Narrative Narrative: Patient presenting for evaluation to a psychiatric eval. Patient stays in the memory care unit. Patient apparently got into an argument with her roommate, and stated that she wanted to get a gun and shoot herself. Patient has no memory of this whatsoever and states that she would never kill herself because that would make me go to hell and I want to go there. Patient is not suicidal homicidal or hallucinating. She does endorse that she has had a cough which she states that she is asked the nurse practitioner for something for for quite some time. Patient denies any fevers. She denies chest pain. Review of systems otherwise negative. [facility] Medical History COPD (chronic obstructive pulmonary disease) Dementia Home Medications Advair HFA 1 - 2 puff INHALATION BID 03/22/21 [History Last Taken Unknown] albuterol sulfate 2.5 mg INHALATION Q4H PRN 03/22/21 [History Last Taken Unknown] alprazolam [Xanax] 1 mg PO TID 03/22/21 [History Last Taken Unknown] memantine 10 mg PO BID 03/22/21 [History Last Taken Unknown] pregabalin 100 mg PO BID 03/22/21 [History Last Taken Unknown] oxycodone 5 mg PO Q8H PRN 04/22/21 [History Last Taken Unknown] donepezil 10 mg PO QHS 05/06/21 [History Last Taken Unknown] fluticasone propion-salmeterol 1 inh INHALATION BID 05/06/21 [History Last Taken Unknown] guaifenesin [Mucinex] 1,200 mg PO BID #14 tab 05/06/21 [Rx Last Taken Unknown] Allergy/AdvReac Type Severity Reaction Status Date / Time Penicillins Allergy PT UNSURE Verified 05/06/21 20:56 OF REACTION tramadol [From Ultram] AdvReac Other Verified 05/06/21 20:56 Family History Other Cancer Heart disease Surgical History H/O: hysterectomy History of back surgery Social History Smoking Status: Current every day smoker tobacco type: cigarettes ROS ROS ED Constitutional Constitutional ED: Denies chills or fever(s) ENT ENT ED: Denies rhinorrhea Cardiovascular Cardiovascular: Denies chest pain Respiratory/Chest Respiratory/Chest: Reports cough Gastrointestinal Gastrointestinal: Denies abdominal pain, diarrhea, nausea or vomiting Genitourinary Genitourinary ED: Denies dysuria or hematuria Musculoskeletal Musculoskeletal: Denies back pain Integumentary Denies rash Neurologic Neurologic: Denies paresthesias or weakness Psychiatric Psychiatric: Denies depression Endocrine Endocrinology: Denies fatigue Allergic/Immunologic Allergic/Immunologic ED: Denies urticaria EXAM Physical Exam Const Vital Signs: 05/06/21 20:56 Temperature 98.6 F Temperature Source Oral Pulse Rate 95 Respiratory Rate 16 Blood Pressure 123/84 H Blood Pressure Mean 97 Pulse Ox 97 Oxygen Delivery Method Room Air Positive well nourished and well developed General Appearance ED: well developed and NAD HEENT Reports moist mucous membranes Negative for trauma or tenderness Eyes EOMs intact bilaterally Neck no lymphadenopathy, supple and no JVD Chest Wall inspection of chest normal Resp normal respiratory effort and clear to auscultation bilaterally Cardio regular rate, regular rhythm, no murmurs and peripheral pulses 2+ throughout GI normal to inspection, nondistended, normoactive bowel sounds, non-tender and no masses Palpation: soft Back/Spine normal to inspection Extremity normal to inspection General Extremety ED: Negative for tenderness Neuro oriented x3 and no sensory deficits noted Sensorium / Orientation: alert Motor Exam: strength 5/5 throughout Psych mental status grossly normal Skin no rashes or lesions noted MDM MDM MDM Narrative Medical decision making narrative: Patient presented for a psychiatric eval. Patient does not appear to be a risk to herself or others. Patient will be given Mucinex for cough, she will be discharged back to the memory care unit. Discharge Plan Triage Chief Complaint: Mental Health ED Provider: Willis Lucas Dx/Rx/DC Orders Clinical Impression: Dementia Instructions: ED DEMENTIA Alzheimer's Prescriptions: New Mucinex 1,200 mg tablet extended release 12hr 1,200 mg PO BID Qty: 14 RF: 0 No Action albuterol sulfate 2.5 mg /3 mL (0.083 %) Solution For Nebulization 2.5 mg INHALATION Q4H PRN (Reason: Wheezing) RF: 0 alprazolam [Xanax] 1 mg Tablet 1 mg PO TID RF: 0 memantine 5 mg tablet 10 mg PO BID RF: 0 pregabalin 100 mg capsule 100 mg PO BID RF: 0 Advair HFA 115-21 mcg/actuation HFA aerosol inhaler 1 - 2 puff INHALATION BID RF: 0 oxycodone 5 mg Capsule 5 mg PO Q8H PRN (Reason: Pain) RF: 0 fluticasone propion-salmeterol 250-50 mcg/dose Blister With Device 1 inh INHALATION BID RF: 0 donepezil 10 mg Tablet 10 mg PO QHS RF: 0 Primary Care Provider: Rehan Connelly Referrals: Rehan Connelly DO [Primary Care Provider] - As Needed Disposition Disposition: Home, Self Care
[2021-05-06] MEDS: guaiFENesin 1,200 MG Tablet 1200 MG PO (22:09)
[2021-05-06 22:14] VITALS: PULSE 95; RESP 15; O2SAT 95
--- NOTE | 2021-05-06 22:55 | ED.RN ---
THIS RN SPOKE WITH EVERT MAYFIELD AT [facility]. SHE WAS GIVEN A VERBAL REPORT THAT THE PATIENT WAS EVALUATED AND CLEARED BY OUR ER PHYSICIAN. [facility] TO ARRANGE TRANSPORT BACK TO [facility]
== END 2021-05-06 23:15 | disposition home or self-care (01) ==
LOC: ED 22:22
PROVIDERS: Emergency Provider Emergency Medicine; PCP Family Medicine
DX: G30.9 Alzheimer's disease, unspecified (principal); F02.80 Dementia in other diseases classified elsewhere, unspecified severity, without behavioral disturbance, psychotic disturbance, mood disturbance, and anxiety; J44.9 Chronic obstructive pulmonary disease, unspecified; R05 Cough; F17.210 Nicotine dependence, cigarettes, uncomplicated; Z79.51 Long term (current) use of inhaled steroids; Z79.899 Other long term (current) drug therapy
CPT/HCPCS: 99284

== ENCOUNTER 2021-06-20 08:55 | Inpatient (IN) | payer MEDICARE, MEDICAID, SELFPAY ==
[2021-06-20] VITALS (12 sets, daily range): BP systolic 94–119; BP diastolic 70–82; PULSE 85–117; RESP 18–30; TEMP 36.6–36.9; O2SAT 2–99; BMI 24.2; BMI 21.5
--- NOTE | 2021-06-20 | IMM_PTH ---
PATIENT: DANE DIAZ LOC: [facility] U#:[id number] AGE/SX: 71/F ROOM: [facility] RE06/20/[address]: Dr. Wilmer Gilliland DO : 1950 BED: 1 DIS: 06/22/2021 SPEC #: [id number] RECD: 06/21/21 13:11 STATUS: DENNY REQ #: [id number] CHILO: 06/20/21 00:[address]: Vipin Lee DEPT: IMMUNOHISTOCHEMISTRY RECD BY: Adriana Curtis ENTERED: 06/21/21 13:12 SP TYPE: IMMUNO OTHR DR: MD Dr. Sudhir Cobb, DO Jennifer [address] Dr[address] CHECK WRITER SALESPERSON-C Tissues: THORACIC FLUID Procedures: Sam Ret (add) CK20 (add) CK5-6 (add) MACRO (add) P40 (add) CK7 (initial) S-100 (add) PHYSICIAN & INSTITUTION [place] [id number] SPECIMEN INFORMATION: Tissue Source: Thoracentesis fluid Clinical Info: Shortness of breath Specimen Number: [id number] CPT code: 67029, 24785 x6 METHODOLOGY: Deparaffinized sections of prefer/formalin-fixed tissue or PAP/DQ stained slides are incubated with monoclonal/polyclonal antibodies/oligonucleotide probes. Localization is made via biotin free immunoperoxidase method. Appropriate controls are performed and reacted as expected. Results on target cell population are indicated in the following table: RESULTS: ANTIBODY / CLONE RESULT CK7 (OV-TL12/30) positive CK20 (KS20.8) negative Macro (HAM-56) positive S-100 (4C4.9) negative CALRET (polyclonal) positive CK5-6 (D5 & 1684) positive P40 (BC28) negative These tests were developed and their performance characteristics determined by [facility]. They may not have been cleared or approved by the U.S. Food and Drug Administration. The FDA has determined that such clearance or approval is not necessary. The above immunohistochemical/dualISH markers are ordered and reviewed by the Pathologist. INTERPRETATION: Thoracentesis fluid (cell block): Reactive mesothelial cells and macrophages primarily. AM:papo 06/22/2021
--- NOTE | 2021-06-20 | FLU_PTH ---
PATIENT: DANE DIAZ LOC: [facility] U#:[id number] AGE/SX: 71/F ROOM: [facility] RE06/20/[address]: Dr. Wilmer Gilliland DO : 1950 BED: 1 DIS: 06/22/2021 SPEC #: [id number] RECD: 06/20/21 13:03 STATUS: DENNY REQ #: [id number] CHILO: 06/20/21 00:[address]: Vipin Lee DEPT: CYTOLOGY RECD BY: Mel Rao ENTERED: 06/20/21 13:49 SP TYPE: Fluid OTHR DR: MD Dr. Sudhir Cobb, DO Jennifer Ruth Dr[address] BATHROOM TILING PROFESSIONAL-C Tissues: THORACIC FLUID Procedures: Special Stain Group II Surgery Specimen Level IV Cytospin Fluid HEADER OPERATION: Ultrasound-guided right thoracentesis PRE-OP DIAGNOSIS: Shortness of breath TISSUE SUBMITTED: Thoracentesis fluid for cytology DIAGNOSIS CYTOLOGY Thoracentesis fluid for cytology (cytospin and cell block): Negative for malignant cells. See comment. AM:papo 06/21/2021 COMMENT Immunohistochemistry ([id number]) supports the above diagnosis. CYTOLOGY STUDY Slides are reviewed. CYTOLOGY GROSS Received is 50 ml of yellow cloudy fluid labeled with the patient's name and and designated per the requisition as thoracentesis. Submitted for cytology preparation including cell block. / papo 06/20/2021 TC:5 CPT: 31907, 62128
--- NOTE | 2021-06-20 09:09 | EKG12_ITS ---
Test Reason : CP Blood Pressure : / mmHG Vent. Rate : 097 BPM Atrial Rate : 097 BPM P-R Int : 120 ms QRS Dur : 108 ms QT Int : 338 ms P-R-T Axes : 036 045 -01 degrees QTc Int : 429 ms Normal sinus rhythm Low voltage QRS Nonspecific T wave abnormality Abnormal ECG Confirmed by MICHELLE LOPEZ, THALIA ([id number]), editorial intern JOSE L JUAREZ ([id number]) on 06/25/2021 10:40:25 AM Referred By: CALVIN Confirmed By:RACHELLE MARTINEZ MD
--- NOTE | 2021-06-20 09:09 | RAD_ITS ---
STUDY: X-RAY CHEST REASON FOR EXAM: Female, 71 years old. hypoxia TECHNIQUE: AP COMPARISON: 04/22/2021 FINDINGS: EKG leads project over the chest. Near complete opacification of the right hemithorax with minimal aeration of the right upper lobe. Patchy infiltrate and small effusion of the left lung base. No tracheal deviation. Normal size heart. Normal mediastinum and jh. Normal visualized pulmonary arteries. There is atherosclerotic calcification of the aortic arch with tortuosity. No acute bony process. There is no demonstrated abnormality of the visualized soft tissue structures of the upper abdomen. RAD/Chest 1 View (Portable) IMPRESSION: 1. Large right pleural effusion with underlying parenchymal atelectasis/volume loss. 2. Left pleural effusion with patchy infiltrates or atelectasis at the left lung. Electronically Signed: Garrett Ramon MD ([place]) at 10:26 EDT , Service support ,
--- NOTE | 2021-06-20 09:10 | EDS_ITS ---
HPI History of Present Illness Chief Complaint: Shortness of Breath Narrative Narrative: 71-year-old female with history of dementia with chief complaint of chest tightness and shortness of breath. Patient is a poor informant due to history of dementia. She is unable to give me a timeframe for how long she has been sick but she does admit to body aches as well. There is report that she was on antibiotics but she cannot recall what antibiotic she is on and how long she has been on them. It was reported that she had pneumonia. Patient does not know if she has had a fever. She does admit to a slight cough. She denies any cardiac history. She states that she has asthma and is a current smoker of less than 1/2 pack a day. [facility] Medical History COPD (chronic obstructive pulmonary disease) Dementia Home Medications albuterol sulfate 2.5 mg INHALATION Q4H PRN 03/22/21 [History Last Taken Unknown] alprazolam [Xanax] 1 mg PO TID 03/22/21 [History Last Taken Unknown] memantine 10 mg PO BID 03/22/21 [History Last Taken Unknown] pregabalin 100 mg PO BID 03/22/21 [History Last Taken Unknown] oxycodone 5 mg PO Q8H PRN 04/22/21 [History Last Taken Unknown] donepezil 10 mg PO QHS 05/06/21 [History Last Taken Unknown] fluticasone propion-salmeterol 1 inh INHALATION BID 05/06/21 [History Last Taken Unknown] duloxetine [Cymbalta] 30 mg PO DAILY 06/20/21 [History Last Taken Unknown] Allergy/AdvReac Type Severity Reaction Status Date / Time Penicillins Allergy PT UNSURE Verified 06/20/21 09:06 OF REACTION tramadol [From Ultram] AdvReac Other Verified 06/20/21 09:06 Family History Other Cancer Heart disease Surgical History H/O: hysterectomy History of back surgery Social History Smoking Status: Current every day smoker tobacco type: cigarettes ROS ROS ED Constitutional Constitutional ED: Reports chills and other Details: Unknown if she has had fevers. ENT ENT ED: Denies rhinorrhea or sore throat Cardiovascular Cardiovascular: Reports chest pain; Denies palpitations or racing heartbeat Respiratory/Chest Respiratory/Chest: Reports cough and dyspnea Gastrointestinal Gastrointestinal: Denies abdominal pain, nausea or vomiting Genitourinary Genitourinary ED: Denies dysuria or hematuria Musculoskeletal Musculoskeletal: Reports myalgias and other Details: Chronic lower back pain ; Denies neck pain Integumentary Denies Abrasions or rash Neurologic Neurologic: Denies headache(s) or paresthesias EXAM Physical Exam Const Vital Signs: 06/20/21 08:56 06/20/21 09:00 06/20/21 09:32 Temperature 98.2 F 98.2 F 98.2 F Temperature Source Temporal Temporal Oral Pulse Rate 110 H 109 H 104 H Respiratory Rate 20 H 20 H 18 Respiratory Effort Short of Breath Respiratory Depth Normal Blood Pressure 109/72 106/77 101/82 H Blood Pressure Mean 84 86 88 Pulse Ox 95 95 95 Oxygen Delivery Method Room Air Nasal Cannula Nasal Cannula Oxygen Flow Rate (L/min) 4 4 Fraction of Inspired Oxygen (FIO2) 95 95 06/20/21 11:30 Temperature 98.0 F Temperature Source Oral Pulse Rate 108 H Respiratory Rate 27 H Respiratory Effort Respiratory Depth Blood Pressure 119/78 Blood Pressure Mean 91 Pulse Ox 99 Oxygen Delivery Method Room Air Oxygen Flow Rate (L/min) Fraction of Inspired Oxygen (FIO2) Positive well nourished General Appearance ED: NAD; Negative for pallor HEENT Reports dry mucous membranes atraumatic Mouth ED: Yes dry mucous membranes Mouth: dry mucous membranes Eyes PERRL and EOMs intact bilaterally Neck no lymphadenopathy and supple Resp normal respiratory effort Auscultation: diminished lung sounds right lower; Negative for wheezes Cardio regular rhythm Rate: tachycardic GI non-tender and non-distended Palpation: soft Back/Spine Back/Spine Narrative: Mild tenderness to palpation over lumbar region. There is previous well-healed surgical scar here. No obvious deformities otherwise. Extremity General Extremety ED: Negative for edema or tenderness General Extremity: Negative for edema Neuro CN's II-XII intact bilaterally and no sensory deficits noted Sensorium / Orientation: alert Motor Exam: strength 5/5 throughout Skin General Skin Exam: Negative for jaundice or pallor Rashes: no rashes MDM MDM MDM Narrative Medical decision making narrative: 71-year-old female who is a poor informant secondary to dementia. Apparently she has been on an antibiotic which is unknown. I will have nursing staff call to see what antibiotic she is on because is not on her med list. Patient is unable to give me a timeline as to how long she has been sick. She estimates a couple of days. I suspect that she has been on antibiotics that she has been on them at least 5 to 7 days. Given initial hypoxia at 86% tachycardia and tachypnea I will pursue a sepsis work-up. Since she is complaining of chest tightness I did obtain an EKG which on my interpretation shows a normal sinus rhythm with a ventricular rate of 97 bpm with T wave inversions in lead III and lead V3 without ST elevation. Troponin is 7. CBC shows no leukocytosis with a white blood cell count of 6.2. Hemoglobin hematocrit are stable. Coagulation studies are normal. Renal function and electrolytes are normal. LFTs are normal. D-dimer is elevated at 2.30. BNP 37. Lactic acid 1.1. Chest x-ray on my interpretation shows a large right pleural effusion and a smaller left pleural effusion with patchy infiltrates. The radiologist does agree. She did have a CTA which showed similar findings except it does show fluid and soft tissue density in the distal right bronchus. May represent secretions versus endobronchial neoplasm as well as soft tissue density surrounding the abdominal aorta and mediastinal adenopathy worrisome for neoplasm such as lymphoma or metastasis. G rapid Covid was negative. I will send for Covid PCR. Given patient's hypoxia and abnormal findings on CT chest x-ray I do believe she is to be admitted for further treatment. I will talk to the hospitalist for admission. Impression: 1. Hypoxic respiratory failure 2. Bilateral pleural effusions 3. Abnormal CTA with concern for neoplasm Lab Data Labs: Laboratory Results - last 24 hr 06/20/21 06/20/21 06/20/21 08:50 08:50 08:50 WBC 6.2 RBC 5.14 Hgb 15.8 H Hct 47.8 H MCV 93.0 MCH 30.7 MCHC 33.1 RDW Std Deviation 45.8 H RDW Coeff of Kendall 13.4 Plt Count 285 MPV 9.7 Immature Gran % (Auto) 0.300 Neut % (Auto) 70.5 H Lymph % (Auto) 17.5 L [place] % (Auto) 9.0 Eos % (Auto) 2.1 Baso % (Auto) 0.6 Absolute Neuts (auto) 4.4 Absolute Lymphs (auto) 1.09 Nucleated RBC % 0 PT 12.7 INR 1.0 APTT 32.8 D-Dimer Quant (PE/DVT) 2.30 H* Sodium 141 Potassium 4.1 Chloride 105 Carbon Dioxide 31.0 Anion Gap 5 BUN 9 Creatinine 0.80 Estim Creat Clear Calc 48.67 Est GFR (MDRD) Af Amer 91 Est GFR (MDRD) Non-Af 76 BUN/Creatinine Ratio 11.3 Glucose 97 Lactic Acid Calcium 9.5 Total Bilirubin 0.40 AST 16 ALT 11 L Alkaline Phosphatase 96 Lactate Dehydrogenase Troponin I High Sens 7 B-Natriuretic Peptide Total Protein 6.8 Albumin 2.5 L Globulin 4.3 H Albumin/Globulin Ratio 0.6 L Urine Color Urine Clarity Urine pH Ur Specific Barker Urine Protein Urine Glucose (UA) Urine Ketones Urine Occult Blood Urine Nitrite Urine Bilirubin Urine Urobilinogen Ur Leukocyte Esterase Urine RBC Urine WBC Ur Squamous Epith Cells Calcium Oxalate Crystal Urine Bacteria Urine Mucus Fluid WBC Fluid Tot Cell Count Fld Polynuclear WBCs # Fld Polynuclear WBCs % Fluid Mononuclear WBCs Fld Mononuclear WBCs % Fluid Total Protein COVID-19 (BEATRIZ) 06/20/21 06/20/21 06/20/21 08:50 09:10 09:22 WBC RBC Hgb Hct MCV MCH MCHC RDW Std Deviation RDW Coeff of Kendall Plt Count MPV Immature Gran % (Auto) Neut % (Auto) Lymph % (Auto) [place] % (Auto) Eos % (Auto) Baso % (Auto) Absolute Neuts (auto) Absolute Lymphs (auto) Nucleated RBC % PT INR APTT D-Dimer Quant (PE/DVT) Sodium Potassium Chloride Carbon Dioxide Anion Gap BUN Creatinine Estim Creat Clear Calc Est GFR (MDRD) Af Amer Est GFR (MDRD) Non-Af BUN/Creatinine Ratio Glucose Lactic Acid 1.1 Calcium Total Bilirubin AST ALT Alkaline Phosphatase Lactate Dehydrogenase Troponin I High Sens B-Natriuretic Peptide 37.7 Total Protein Albumin Globulin Albumin/Globulin Ratio Urine Color Urine Clarity Urine pH Ur Specific Barker Urine Protein Urine Glucose (UA) Urine Ketones Urine Occult Blood Urine Nitrite Urine Bilirubin Urine Urobilinogen Ur Leukocyte Esterase Urine RBC Urine WBC Ur Squamous Epith Cells Calcium Oxalate Crystal Urine Bacteria Urine Mucus Fluid WBC Fluid Tot Cell Count Fld Polynuclear WBCs # Fld Polynuclear WBCs % Fluid Mononuclear WBCs Fld Mononuclear WBCs % Fluid Total Protein COVID-19 (BEATRIZ) Negative 06/20/21 06/20/21 06/20/21 09:22 09:45 12:00 WBC RBC Hgb Hct MCV MCH MCHC RDW Std Deviation RDW Coeff of Kendall Plt Count MPV Immature Gran % (Auto) Neut % (Auto) Lymph % (Auto) [place] % (Auto) Eos % (Auto) Baso % (Auto) Absolute Neuts (auto) Absolute Lymphs (auto) Nucleated RBC % PT INR APTT D-Dimer Quant (PE/DVT) Sodium Potassium Chloride Carbon Dioxide Anion Gap BUN Creatinine Estim Creat Clear Calc Est GFR (MDRD) Af Amer Est GFR (MDRD) Non-Af BUN/Creatinine Ratio Glucose Lactic Acid Calcium Total Bilirubin AST ALT Alkaline Phosphatase Lactate Dehydrogenase Cancelled Troponin I High Sens B-Natriuretic Peptide Total Protein Cancelled Albumin Globulin Cancelled Albumin/Globulin Ratio Cancelled Urine Color Yellow Urine Clarity Sl. Cloudy Urine pH 6.0 Ur Specific Barker 1.025 Urine Protein Negative Urine Glucose (UA) Normal Urine Ketones 5 H Urine Occult Blood Negative Urine Nitrite Negative Urine Bilirubin Negative Urine Urobilinogen Normal Ur Leukocyte Esterase 100 H Urine RBC 0-5 SEEN Urine WBC 0-5 SEEN Ur Squamous Epith Cells 0-5 SEEN Calcium Oxalate Crystal 1+ Urine Bacteria RARE Urine Mucus 1+ Fluid WBC Fluid Tot Cell Count Fld Polynuclear WBCs # Fld Polynuclear WBCs % Fluid Mononuclear WBCs Fld Mononuclear WBCs % Fluid Total Protein Cancelled COVID-19 (BEATRIZ) 06/20/21 12:00 WBC RBC Hgb Hct MCV MCH MCHC RDW Std Deviation RDW Coeff of Kendall Plt Count MPV Immature Gran % (Auto) Neut % (Auto) Lymph % (Auto) [place] % (Auto) Eos % (Auto) Baso % (Auto) Absolute Neuts (auto) Absolute Lymphs (auto) Nucleated RBC % PT INR APTT D-Dimer Quant (PE/DVT) Sodium Potassium Chloride Carbon Dioxide Anion Gap BUN Creatinine Estim Creat Clear Calc Est GFR (MDRD) Af Amer Est GFR (MDRD) Non-Af BUN/Creatinine Ratio Glucose Lactic Acid Calcium Total Bilirubin AST ALT Alkaline Phosphatase Lactate Dehydrogenase Troponin I High Sens B-Natriuretic Peptide Total Protein Albumin Globulin Albumin/Globulin Ratio Urine Color Urine Clarity Urine pH Ur Specific Barker Urine Protein Urine Glucose (UA) Urine Ketones Urine Occult Blood Urine Nitrite Urine Bilirubin Urine Urobilinogen Ur Leukocyte Esterase Urine RBC Urine WBC Ur Squamous Epith Cells Calcium Oxalate Crystal Urine Bacteria Urine Mucus Fluid WBC 0.997 Fluid Tot Cell Count 1.065 H Fld Polynuclear WBCs # 0.026 Fld Polynuclear WBCs % 2.6 Fluid Mononuclear WBCs 0.971 Fld Mononuclear WBCs % 97.4 Fluid Total Protein COVID-19 (BEATRIZ) Radiography Diagnostic Testing: Radiology Impression Chest X-Ray 06/20/21 09:09 IMPRESSION: 1. Large right pleural effusion with underlying parenchymal atelectasis/volume loss. 2. Left pleural effusion with patchy infiltrates or atelectasis at the left lung. Electronically Signed: Garrett Ramon MD ([place]) at 10:26 EDT , Service support , Chest CTA 06/20/21 09:48 IMPRESSION: 1. No central or segmental pulmonary embolism. 2. Very large right and moderate left pleural effusions. 3. Right lower lobe and middle lobe more than upper lobe atelectasis/volume loss. Patchy atelectasis of the left lung. 4. Fluid and soft tissue density in the distal right bronchus. May represent secretions versus endobronchial neoplasm. 5. Soft tissue density surrounding the abdominal aorta and mediastinal adenopathy worrisome for neoplasm such as lymphoma or metastasis. Incompletely visualized. Electronically Signed: Garrett Ramon MD ([place]) at 10:31 EDT , Service support , Discharge Plan Disposition Disposition: Acute Care Hospital [facility] Discharge Date/Time: 06/20/21 11:49
[2021-06-20 09:25] LABS: Absolute Lymphocyte Count 1.09 X10^3/uL (0.83-4.51); Absolute Neutrophil Count 4.4 X10^3/uL (2.0-7.7); Basophil# 0.04 X10^3/uL; Basophil% 0.6 % (0-1); Eosinophil# 0.13 X10^3/uL; Eosinophils% 2.1 % (0-5); Hematocrit 47.8 % (37-47); Hemoglobin 15.8 g/dL (12.0-15.0); Lymphocyte # 1.09 X10^3/ul (0.83-4.51); Lymphocyte % 17.5 % (19-41); Mean Corp Hgb Conc 33.1 g/dL (32-36); Mean Corpuscular Hgb 30.7 pg (27.0-32.0); Mean Platelet Vol. 9.7 fl (6.2-12.0); Monocyte# 0.56 X10^3/uL; NRBC Flagged by Analyzer 0 % (0-5); Neutrophil # 4.39 X10^3/uL (2.7-7.7); Neutrophil % 70.5 % (47-70); Platelet Count 285 K/mm3 (150-450); RBC Distribution Width CV 13.4 % (11.6-14.6); RBC Distribution Width SD 45.8 fl (35.1-43.9); Red Blood Count 5.14 M/mm3 (4.2-5.4); White Blood Count 6.2 K/mm3 (4.4-11.0)
[2021-06-20 09:43] LABS: ALB/GLOB Ratio 0.6 RATIO (0.9-2.4); AST(SGOT) 16 U/L (15-37); Alanine Aminotransfer ALT/SGPT 11 U/L (13-56); Albumin, Serum 2.5 g/dL (3.2-5.0); Alkaline Phosphatase 96 U/L (45-117); Anion Gap 5 (5-15); BUN 9 mg/dL (7-18); BUN/Creat Ratio 11.3 RATIO (10-20); Calcium,Total 9.5 mg/dL (8.5-10.1); Chloride 105 mmol/L (98-107); EST Glomerular Filtration Rate 76 mL/min (>60); Est Glom Filt Rate - Afr Amer 91 mL/min (>60); Estimated Creatinine Clearance 48.67 ml/min; Globulin 4.3 g/dL (2.2-4.2); Glucose 97 mg/dL (74-106); Potassium 4.1 mmol/L (3.5-5.1); Protein, Total 6.8 g/dL (6.4-8.2); Sodium Level 141 mmol/L (136-145); Troponin-I HS 7 pg/mL (3.0-54.0)
--- NOTE | 2021-06-20 09:48 | CT_ITS ---
STUDY: CTA CHEST REASON FOR EXAM: Female, 71 years old. chest pain RADIATION DOSAGE (If Supplied By Facility): CTDIvol = ( 5.88 ) mGy, DLP = ( 257.96 ) mGycm TECHNIQUE: The examination was performed with the intravenous administration of IV 75mL Isovue-370. Post-processing of the angiographic images was performed, with multiplanar reformation and 3D reconstruction. Individualized dose optimization techniques were used for this CT. COMPARISON: None. FINDINGS: Normal enhancement of the main pulmonary artery and right and left pulmonary arteries. Normal enhancement of the bilateral peripheral pulmonary arteries. There is no demonstrated pulmonary embolism. There is atherosclerotic calcification of the aortic arch with tortuosity. There is no demonstrated aortic dissection. Normal heart and pericardium. There are calcifications of the coronary arteries. There are calcified mediastinal lymph nodes. Adenopathy of the mediastinum including a large lymph node anterior to the ascending thoracic aorta measuring 1.9 x 1.7 cm. Limited evaluation of the right hilum given parenchymal volume loss. There is fluid and soft tissue density in the right distal bronchus (image 146 series 601). No discrete pulmonary nodule in the aerated segments of the lungs. Large right and moderate left pleural effusions with associated volume loss/compressive atelectasis predominantly involving the right lower lobe, right middle lobe and posterior right upper lobe. Patchy atelectasis of the left lung including the left upper lobe, lingula and left lower lobe. Normal chest wall structures. Chest wall collaterals with narrowing of the central right subclavian vein may be artificially accentuated due to arms above the head. Degenerative changes of thoracic spine. There is circumferential soft tissue density surrounding the abdominal aorta, incompletely visualized. Cholecystectomy clips are present. CT/CTA Chest W/WO Contrast IMPRESSION: 1. No central or segmental pulmonary embolism. 2. Very large right and moderate left pleural effusions. 3. Right lower lobe and middle lobe more than upper lobe atelectasis/volume loss. Patchy atelectasis of the left lung. 4. Fluid and soft tissue density in the distal right bronchus. May represent secretions versus endobronchial neoplasm. 5. Soft tissue density surrounding the abdominal aorta and mediastinal adenopathy worrisome for neoplasm such as lymphoma or metastasis. Incompletely visualized. Electronically Signed: Garrett Ramon MD (Brooks) at 10:31 EDT , Service support ,
[2021-06-20 09:52] LABS: Prothrombin Time (Protime)PT. 12.7 SECONDS (11.7-14.9)
[2021-06-20 09:53] LABS: Partial Thromboplast Time 32.8 Seconds (24.1-36.2)
[2021-06-20 10:05] LABS: Lactic Acid 1.1 mmol/L (0.4-1.9)
[2021-06-20 10:45] LABS: BNP,B-Type NATRIURETIC PEPTIDE 37.7 pg/mL (0-100)
--- NOTE | 2021-06-20 11:13 | NURSING ---
PCU KELLY HYPOXIC RESP FAILURE, BILATERAL PLEURAL EFFUSIONS
--- NOTE | 2021-06-20 11:20 | US_ITS ---
PROCEDURE: ULTRASOUND GUIDED THORACENTESIS. CLINICAL INDICATION: 71-year-old male with shortness of breath.. PHYSICIAN: Brook Govea MD MEDICATIONS: 1% lidocaine administered subcutaneously for local anesthesia. ACCESS SITE: Right lower thorax, posterior approach. CATHETER: 5 [place]e thoracentesis needle/catheter system. FLUID: Approximately 800 mL of saphenous pleural fluid removed. COMPLICATIONS: None immediate. The risks, benefits, and alternatives to the procedure and sedation were explained to the patient. The specific risks of bleeding, infection, and pneumothorax requiring chest tube insertion were discussed and accepted. Written informed consent was obtained. PROCEDURE: Ultrasonographic evaluation of the right lower pleural space was carried out. An adequate pocket was identified. The patient was placed in the sitting, upright position. The overlying skin was prepped and draped in sterile fashion. 1% lidocaine was administered subcutaneously for local anesthesia. Under ultrasound guidance, a 5 [place]e thoracentesis needle/catheter system was advanced into the right posterior lower pleural fluid collection. The inner stylet was removed and there was spontaneous flow of pleural fluid. Approximately 800 mL of fluid was manually aspirated. The catheter was removed. Hemostasis was achieved and a sterile dressing was applied. A specimen was collected and sent to the laboratory for analysis, as requested by the referring clinician. The patient tolerated the procedure well, without immediate complications. A chest x-ray was ordered. US/Thoracentesis W US IMPRESSION: Successful ultrasound-guided right thoracentesis. Electronically Signed: Guilherme Govea MD at 15:24 EDT Tel , Service support ,
[2021-06-20 11:21] LABS: Probe Check PASS; Specimen Processing Control PASS
--- NOTE | 2021-06-20 11:43 | ED.RN ---
Spoke with niece, Rashmi Enriquez. She states she is the healthcare POA. She was updated regarding status of which she gave verbal understanding.
[2021-06-20 11:48] LABS: Color, Urine Yellow (Yellow); Glucose, Dipstick Normal (Normal); Ketone-Dipstick 5 mg/dl (Negative); Leukocyte Esterase-Dipstick 100 /ul (Negative); Nitrite-Dipstick Negative (Negative); Occult Blood-Urine Negative /ul (Negative); Protein-Dipstick Negative (Negative); Specific Gravity, Urine 1.025 (1.002-1.030); Urine Bilirubin Dipstick Negative (Negative); Urine Clarity Sl. Cloudy (Clear); Urine Urobilinogen Normal (Normal)
--- NOTE | 2021-06-20 12:00 | PCM.HP.STD ---
HPI - General General Date of Admission: 06/20/21 HPI Narrative DANE DIAZ, is a 71 FWith history ofCOPD and dementia living in [facility] came to ER for shortness of breath. Patient is very short of breath and she complained of chest congestion. She has chronic cough and shortness of breath chronic smoker since teenage and still smokes 3 to 4 cigarettes/day. Denies any cardiac history including coronary artery disease, CHF, arrhythmia. She is nonadherent to follow-up physicians. It seems the patient has not seen by requisition approver in the past. History is limited because of shortness of breath and dementia. In ED SARS-CoV-2 rapid antigen and RT-PCR are negative. Chest CTA in the ER is negative for PE but shows bilateral pleural effusion, right almost whiteout and left moderate pleural effusion. I discussed with the radiologist and he will do ultrasound-guided thoracocentesis. He also thinks that patient might have right hilar or lower mass but cannot ascertain because of effusion. [facility] Medical History COPD (chronic obstructive pulmonary disease) Dementia Home Medications albuterol sulfate 2.5 mg INHALATION Q4H PRN 03/22/21 [History Last Taken Unknown] alprazolam [Xanax] 1 mg PO TID 03/22/21 [History Last Taken Unknown] memantine 10 mg PO BID 03/22/21 [History Last Taken Unknown] pregabalin 100 mg PO BID 03/22/21 [History Last Taken Unknown] oxycodone 5 mg PO Q8H PRN 04/22/21 [History Last Taken Unknown] donepezil 10 mg PO QHS 05/06/21 [History Last Taken Unknown] fluticasone propion-salmeterol 1 inh INHALATION BID 05/06/21 [History Last Taken Unknown] duloxetine [Cymbalta] 30 mg PO DAILY 06/20/21 [History Last Taken Unknown] Allergy/AdvReac Type Severity Reaction Status Date / Time Penicillins Allergy PT UNSURE Verified 06/20/21 09:06 OF REACTION tramadol [From Ultram] AdvReac Other Verified 06/20/21 09:06 Family History Other Cancer Heart disease Surgical History H/O: hysterectomy History of back surgery Social History Smoking Status: Current every day smoker tobacco type: cigarettes ROS ROS Narrative Complete ROS unobtainable due to patient's Alzheimer's dementia. Patient on Aricept and memantine Patient denies any chest pain but has chest congestion and shortness of breath. Denies any Denies cancer history. Denies new lower leg. Tract symptoms of burning micturition. Bowel movement yesterday denies constipation or abdominal pain. Vital Signs Vital Signs Vital Signs: 06/20/21 08:56 06/20/21 09:00 06/20/21 09:32 Temperature 98.2 F 98.2 F 98.2 F Temperature Source Temporal Temporal Oral Pulse Rate 110 H 109 H 104 H Respiratory Rate 20 H 20 H 18 Respiratory Effort Short of Breath Respiratory Depth Normal Blood Pressure 109/72 106/77 101/82 H Blood Pressure Mean 84 86 88 Pulse Ox 95 95 95 Oxygen Delivery Method Room Air Nasal Cannula Nasal Cannula Oxygen Flow Rate (L/min) 4 4 Fraction of Inspired Oxygen (FIO2) 95 95 06/20/21 11:30 Temperature 98.0 F Temperature Source Oral Pulse Rate 108 H Respiratory Rate 27 H Respiratory Effort Respiratory Depth Blood Pressure 119/78 Blood Pressure Mean 91 Pulse Ox 99 Oxygen Delivery Method Room Air Oxygen Flow Rate (L/min) Fraction of Inspired Oxygen (FIO2) Weight Weight: 128 lb 4.944 oz Body Mass Index (BMI) 24.2 Physical Exam Narrative General: Forgetfulness. Awake. Oriented x2 HEENT: Atraumatic, PERRLA, EOMI, Normocephalic Oral: No Gingival or Mucosal Lesions/ Ulcerations Neck: Supple, No JVD, Negative Carotid Bruits Lungs: Air entry diminished on both sides more significantly on the right side. Expiratory rhonchi and wheezing present. Cardiovascular: Sinus tachycardia, Normal S1, Normal S2, LLSB systolic murmur present Abdomen: Bowel Sounds Present, Soft, Non Tender, Non-Distended : No renal angle tenderness. No suprapubic tenderness. Extremities: No edema, Capillary Refill Less than 3 Seconds Skin: No rashes, No breakdown Musculoskeletal: Mild loss of muscles of extremities. No Tenderness to Palpation of Joints or Extremities Neurological: Cranial nerves II-XII grossly intact, DTR 2+/4 and Symmetrical, Neuro grossly intact Psych/Mental Status: Short of breath. Results Lab / Micro Data Result Diagrams: 06/20/21 08:50 06/20/21 08:50 Labs: Laboratory Results - last 24 hr 06/20/21 08:50: WBC 6.2, RBC 5.14, Hgb 15.8 H, Hct 47.8 H, MCV 93.0, MCH 30.7, MCHC 33.1, RDW Std Deviation 45.8 H, RDW Coeff of [place] 13.4, Plt Count 285, MPV 9.7, Immature Gran % (Auto) 0.300, Neut % (Auto) 70.5 H, Lymph % (Auto) 17.5 L, [place] % (Auto) 9.0, Eos % (Auto) 2.1, Baso % (Auto) 0.6, Absolute Neuts (auto) 4.4, Absolute Lymphs (auto) 1.09, Nucleated RBC % 0 06/20/21 08:50: PT 12.7, INR 1.0, APTT 32.8, D-Dimer Quant (PE/DVT) 2.30 H* 06/20/21 08:50: Sodium 141, Potassium 4.1, Chloride 105, Carbon Dioxide 31.0, Anion Gap 5, BUN 9, Creatinine 0.80, Estim Creat Clear Calc 48.67, Est GFR (MDRD) Af Amer 91, Est GFR (MDRD) Non-Af 76, BUN/Creatinine Ratio 11.3, Glucose 97, Calcium 9.5, Total Bilirubin 0.40, AST 16, ALT 11 L, Alkaline Phosphatase 96, Troponin I High Sens 7, Total Protein 6.8, Albumin 2.5 L, Globulin 4.3 H, Albumin/Globulin Ratio 0.6 L 06/20/21 08:50: B-Natriuretic Peptide 37.7 06/20/21 09:10: COVID-19 (BEATRIZ) Negative 06/20/21 09:22: Lactic Acid 1.1 06/20/21 09:22: Lactate Dehydrogenase 247 H, Total Protein 6.8, Globulin 4.2, Albumin/Globulin Ratio 0.6 L 06/20/21 09:45: Urine Color Yellow, Urine Clarity Sl. Cloudy, Urine pH 6.0, Ur Specific [place] 1.025, Urine Protein Negative, Urine Glucose (UA) Normal, Urine Ketones 5 H, Urine Occult Blood Negative, Urine Nitrite Negative, Urine Bilirubin Negative, Urine Urobilinogen Normal, Ur Leukocyte Esterase 100 H Micro: Microbiology 06/20/21 09:15 Nasal Secretion SARS-CoV-2 Antigen (Rapid) - Final Radiology Impression Chest X-Ray 06/20/21 09:09 IMPRESSION: 1. Large right pleural effusion with underlying parenchymal atelectasis/volume loss. 2. Left pleural effusion with patchy infiltrates or atelectasis at the left lung. Electronically Signed: Garrett Ramon MD (Brooks) at 10:26 EDT , Service support , Chest CTA 06/20/21 09:48 IMPRESSION: 1. No central or segmental pulmonary embolism. 2. Very large right and moderate left pleural effusions. 3. Right lower lobe and middle lobe more than upper lobe atelectasis/volume loss. Patchy atelectasis of the left lung. 4. Fluid and soft tissue density in the distal right bronchus. May represent secretions versus endobronchial neoplasm. 5. Soft tissue density surrounding the abdominal aorta and mediastinal adenopathy worrisome for neoplasm such as lymphoma or metastasis. Incompletely visualized. Electronically Signed: Garertt Ramon MD (Brooks) at 10:31 EDT , Service support , Assessment & Plan Assessment/Plan (1) Pleural effusion: PLAN: 70-year-old female came [facility] for shortness of breath and found to have bilateral pleural effusion. 1. Bilateral, right large left moderate pleural effusion: Patient is being admitted in PCU. Therapeutic right-sided thoracocentesis ordered. Discussed with the requisition approver and consulted. BNP negative. 2D echo is ordered to rule out heart failure. As per radiologist, there is mediastinal lymphadenopathy largest measuring 1.9 x 1.7 cm. Right hilum cannot be ascertained because of pleural effusion. Patchy atelectasis of left lung including left upper lobe. 2. Possible COPD: Patient does not seem to have PFT but has prolonged history of smoking since teenage and COPD mentioned in problem list. Continue home inhaler along with DuoNeb as needed. Incentive spirometry. Mucinex ordered. COVID-19 ruled out. Does not seem to be in acute exacerbation. 3. Dementia: Mild tremors dementia: On Aricept and memantine 4. Chronic smoking: Patient states she wants to continue with smoking. Smoking cessation advised Living will/advanced directive/end of life care: Patient does not have living will or advanced directive. She does not have son daughter or . Her closest niece is Ms. Rashmi Diaz. After discussion of benefits/risks procedures involved with full code, DNR CC arrest and DNR CC, the patient opted for DNR-CC Arrest with no intubation Patient does not want artificial life support including intubation, tube feed, ventilator and/chest compression, central venous catheter, vasopressor and DC shock if needed Total time spent in [id number] encounter in discussion of advanced directive 16 minutes. Charges/Coding Visit Charges Inpatient E&M: 24029 Init Hosp L3 Procedures Hospitalists Procedures: 12944 Advncd Care Plan 30 Min
[2021-06-20 12:01] LABS: Bacteria RARE /hpf (None Seen); Mucous, Urine 1+ /hpf (<or=2+); Red Blood Cells-Urine 0-5 SEEN /hpf (0-5); Squamous Epithelial Cells - UA 0-5 SEEN /hpf (5-10); White Blood Cells 0-5 SEEN /hpf (0-5)
[2021-06-20 12:02] LABS: Calcium Oxalate Crystals Ur 1+ /hpf (<or=2+)
--- NOTE | 2021-06-20 12:26 | NURSING ---
PT WAS BROUGHT TO UNIT FOR MAYBE 5 MINUTES BEFORE THEN WANTED HER DOWN IN ULTRASOUND
[2021-06-20] MEDS: Lidocaine 2% (20 ml mdv) 20 ML Vial INFILT (12:45)
--- NOTE | 2021-06-20 13:03 | RAD_ITS ---
INDICATION: post thora EXAMINATION/TECHNIQUE: X-RAY - XR Chest 2 Views COMPARISON: Chest x-ray obtained same day at 10:18 AM.. FINDINGS: EKG leads are seen superimposing the chest. Slight decrease in the opacification of the right hemithorax is visualized in comparison to the prior study, no evidence of pneumothorax is seen, residual right pleural fluid is seen since patient requested discontinuation of the thoracentesis. Mild prominence of the bronchovascular markings visualized in the left hemithorax, no evidence of significant left pleural fluid is seen. Dextroscoliosis of the thoracic spine with deviation of the mediastinum to the right. Degenerative bone changes seen. IMPRESSION: Slightly decreased in the right hemithorax opacification in comparison to the prior study. No evidence of pneumothorax is seen. Electronically Signed: Guilherme Govea MD at 13:27 EDT Tel , Service support , RAD/Chest Insp/Exp 2 View
[2021-06-20 13:09] LABS: Cytology, Body Fluid / CSF SEE PATHOLOGY REPORT
--- NOTE | 2021-06-20 13:11 | ECHOD_ITS ---
Reason For Study: Bilateral Large Pleural Effusions Procedure This was a 2D Doppler, Color Flow transthoracic echocardiogram. Technically difficult due to patients severe coughing. The study was technically difficult. Exam performed portable in patient room. Left Ventricle Normal LV size. Left ventricular systolic function is hyperdynamic. The estimated ejection fraction is 75 %. No evidence for diastolic dysfunction. No regional wall motion abnormalities noted. Right Ventricle Normal RV size. Normal systolic function. Atria Normal left atrium. Normal right atrium. No doppler evidence for ASD. Mitral Valve There is mild mitral annular calcification. Extension of the mitral annular calcification onto the base of the posterior mitral valve leaflet. Trivial mitral valve insufficiency. Tricuspid Valve Normal tricuspid valve. Trivial tricuspid valve insufficiency. Right ventricular systolic pressure estimated to be 45 mmHg. Aortic Valve Trisinus/trileaflet aortic valve. Mild diffuse aortic valve thickening. Mild focal aortic valve calcification. Pulmonic Valve The pulmonic valve is not well visualized. Great Vessels The aortic root is not well visualized. Pericardium/Pleural Trivial pericardial effusion. There are no echocardiographic indications of cardiac tamponade. Echo lucency compatible with a pleural effusion. MMode/2D Measurements & Calculations LVIDd: 3.3 cm IVSd: 1.1 cm LAV(MOD-sp4): 14.8 ml LVIDs: 1.7 cm LVPWd: 0.96 cm FS: 50.4 % LA A4 area: 8.0 cm2 RA A4 area: 10.3 cm2 Time Measurements MV dec time: 0.18 sec Doppler Measurements & Calculations MV E max abdelrahman: 60.8 cm/sec Lat Peak E' Abdelrahman: 6.6 cm/sec Med Peak E' Abdelrahman: 6.7 cm/sec MV A max abdelrahman: 79.3 cm/sec E/E' lat: 9.2 E/E' med: 9.1 MV E/A: 0.77 MV V2 max: 85.4 cm/sec MV P1/2t max abdelrahman: 74.6 cm/sec Ao V2 max: 113.4 cm/sec MV max P.9 mmHg MV P1/2t: 54.6 msec Ao max P.2 mmHg MV V2 mean: 51.0 cm/sec MV dec slope: 400.7 cm/sec2 MV mean P.2 mmHg MVA(P1/2t): 4.0 cm2 MV V2 VTI: 19.5 cm LV V1 max: 82.4 cm/sec PA V2 max: 94.4 cm/sec TR max abdelrahman: 273.0 cm/sec LV V1 max P.7 mmHg TR max P.8 mmHg ECHO/Echo Complete Interpretation Summary The study was technically difficult. Left ventricular systolic function is hyperdynamic. The estimated ejection fraction is 75 %. There is mild mitral annular calcification. Extension of the mitral annular calcification onto the base of the posterior mi tral valve leaflet. Trivial mitral valve insufficiency. Trivial tricuspid valve insufficiency. Mild diffuse aortic valve thickening. Mild focal aortic valve calcification. Trivial pericardial effusion. There are no echocardiographic indications of cardiac tamponade. Echo lucency compatible with a pleural effusion. Right ventricular systolic pressure estimated to be 45 mmHg. No evidence for diastolic dysfunction. Ordering Physician: Vipin Lee Referring Physician: Rehan Connelly Performed By: Francisco Kelley RCS
[2021-06-20 13:44] LABS: Body Fluid Mononuclear WBC # 0.971 10^3/uL; Body Fluid Mononuclear WBC % 97.4 %; Body Fluid Polynuclear WBC # 0.026 10^3/uL; Body Fluid Polynuclear WBC % 2.6 %; Body Fluid Total Cells Counted 1.065 10^3/ul; White Blood Count/Body Fluid 0.997 10^3/uL
[2021-06-20] MEDS: Budesonide Respules 0.5 MG/2 ML AMPUL.NEB. INHALATION (13:47)
[2021-06-20] MEDS: Ipratropium/Albuterol Sulfate 3 ML AMPUL.NEB INHALATION ×2 (13:47→19:59)
[2021-06-20 13:55] LABS: Auto B Fluid Analyzer BKGD Ct COUNTS W/IN LIMITS (W/IN LIMITS); Color/Body Fluid LT YEL
[2021-06-20 13:56] LABS: Appearance/Body Fluid SL CLDY; Body Fluid QC Type(s) BF1Q; Source- Body Fluid THORACENTESIS
[2021-06-20 14:09] LABS: Red Cell Count/Body Fluid 603 /mm3
[2021-06-20 14:10] LABS: Troponin-I HS 7 pg/mL (3.0-54.0)
[2021-06-20 14:35] LABS: Lymphocytes 72 %; Macrophages 11 %; Mesothelial Cells 2 %; Monocytes 12 %; Neutrophil (Segs) 3 %
--- NOTE | 2021-06-20 14:45 | CASEMGMT ---
Per chart patient is from [place]. ELIJAH sent clinicals to [facility]. ELIJAH will follow up with family to make sure the plan is to return to [place]. Lor PIERRE
[2021-06-20 14:53] LABS: Glucose, Body Fluid 99 mg/dL (40-70); LDH,Body Fluid 201 Units/l (Not Establ.); Protein, Body Fluid 3.9 g/dL (Not Establ.)
[2021-06-20] MEDS: oxyCODONE 5 MG Tablet PO (14:56)
[2021-06-20] MEDS: Senna/Docusate Sodium 1 Tablet 2 TABLET PO (14:56)
[2021-06-20] MEDS: guaiFENesin 1,200 MG Tablet 1200 MG PO ×2 (15:35→22:29)
[2021-06-20 17:15] LABS: LDH 230 U/L (84-246)
[2021-06-20] MEDS: Donepezil HCl 10 MG Tablet PO (22:28)
[2021-06-20] MEDS: Memantine Hydrochloride 10 MG Tablet PO (22:29)
[2021-06-20] MEDS: Pregabalin 50 MG Capsule 100 MG PO (22:43)
[2021-06-21] VITALS (16 sets, daily range): BP systolic 108–135; BP diastolic 70–78; PULSE 72–125; RESP 16–24; TEMP 36.7–37.2; O2SAT 91–95
[2021-06-21] MEDS: Ipratropium/Albuterol Sulfate 3 ML AMPUL.NEB INHALATION ×3 (00:34→11:11)
--- NOTE | 2021-06-21 05:48 | NURSING ---
All charting by Lillian Barrios reviewed by this RN.
[2021-06-21 05:56] LABS: Absolute Lymphocyte Count 1.23 X10^3/uL (0.83-4.51); Basophil# 0.03 X10^3/uL; Basophil% 0.4 % (0-1); Eosinophil# 0.09 X10^3/uL; Eosinophils% 1.1 % (0-5); Hematocrit 43.2 % (37-47); Hemoglobin 14.1 g/dL (12.0-15.0); Lymphocyte # 1.23 X10^3/ul (0.83-4.51); Lymphocyte % 15.4 % (19-41); Mean Corp Hgb Conc 32.6 g/dL (32-36); Mean Corpuscular Hgb 30.1 pg (27.0-32.0); Mean Corpuscular Volume 92.1 fL (81-99); Mean Platelet Vol. 9.9 fl (6.2-12.0); Monocyte% 7.5 % (0-10); NRBC Flagged by Analyzer 0 % (0-5); Neutrophil % 75.1 % (47-70); Platelet Count 260 K/mm3 (150-450); RBC Distribution Width CV 13.3 % (11.6-14.6); RBC Distribution Width SD 45.1 fl (35.1-43.9); Red Blood Count 4.69 M/mm3 (4.2-5.4)
[2021-06-21 06:37] LABS: Anion Gap 5 (5-15); BUN 7 mg/dL (7-18); BUN/Creat Ratio 9.7 RATIO (10-20); Calcium,Total 8.8 mg/dL (8.5-10.1); Chloride 104 mmol/L (98-107); Creatinine, Serum 0.72 mg/dL (0.55-1.02); EST Glomerular Filtration Rate 85 mL/min (>60); Est Glom Filt Rate - Afr Amer 103 mL/min (>60); Estimated Creatinine Clearance 38.94 ml/min; Glucose 94 mg/dL (74-106); Sodium Level 140 mmol/L (136-145); Thyroid Stim Hormone (TSH) 1.93 uIU/mL (0.358-3.74)
[2021-06-21] MEDS: Budesonide Respules 0.5 MG/2 ML AMPUL.NEB. INHALATION ×2 (07:21→19:20)
--- NOTE | 2021-06-21 07:34 | PCS.PANDOC ---
PANDEMIC DOCUMENTATION INITIATED: Date: 04/30/2021 Time: 190
--- NOTE | 2021-06-21 07:53 | EX.PCM.CONCC ---
Assessment & Plan Assessment/Plan (1) Pleural effusion: PLAN: RECOMMENDATIONS: 1. Continue supplemental oxygen to maintain saturations at or above 90%. 2. Await pleural fluid study results. 3. The patient reported to me that she is not interested in pursuing any additional work-up including bronchoscopy. IMPRESSIONS: 1. Bilateral pleural effusions CTA chest did demonstrate evidence of a large right and moderate left-sided pleural effusion along with a possible soft tissue density in the distal right bronchus. The patient does have an extensive smoking history. Echocardiogram demonstrated intact systolic function. BNP was unremarkable. The patient has been afebrile and without an elevated white blood cell count. While these findings could represent pneumonia, they could certainly also represent an underlying malignant process. The patient did undergo an ultrasound-guided thoracentesis of the right hemithorax with 800 mL of fluid removed. Per traditional Light's criteria, if at least one of the following three is fulfilled, the fluid would be considered an exudate: 1. Pleural fluid protein/serum protein ratio greater than 0.5 2. Pleural fluid LDH/serum LDH ratio greater than 0.6 3. Pleural fluid LDH greater than two thirds the upper limits of the laboratories normal serum LDH Based upon my review of the patient's pleural fluid analysis, along with serum LDH and total protein levels, the pleural fluid would be considered exudative in nature. In addition, the pleural effusion is lymphocyte predominant. Cultures and cytology are pending. While I am concerned that the patient could have an underlying malignant process with possible endobronchial involvement, I did speak to the patient at length about my recommendation to proceed with airway evaluation via bronchoscopy. However, the patient reported to me that she is not interested in pursuing any form of invasive work-up, including bronchoscopy, as she would not want to know if she had cancer in the first place. Therefore, for now, we will continue with supportive measures including antibiotics and supplemental oxygen to maintain saturations at or above 90%, while awaiting the results of her pleural fluid studies. This note was generated with [employer] software. It may contain incorrect words, spelling, and punctuation that were not noted in checking the note before signing. HPI Consult Data Date of Consult: 06/22/21 HPI Narrative Reason for Consultation: Pleural effusion HPI Narrative: The patient is a 71-year-old female, with a history as outlined below, who presented to the emergency department on June 20 with chest tightness and dyspnea. The patient has a longstanding tobacco abuse history, which initially began in grade school. The patient reports that she is currently smoking less than half a pack per day. She does report stability in her weight and appetite. She denies any hemoptysis. She has never been evaluated by a rn research in the past. The patient currently resides at a intermediate facility. On presentation to the emergency department, the patient was noted to be afebrile and hemodynamically stable. Initial laboratory evaluation revealed no evidence of a leukocytosis. D-dimer was elevated at 2.3. INR was within normal limits. Chemistry profile was unremarkable. Urine analysis was unremarkable. Coronavirus PCR was negative. CTA chest showed no evidence for PE. However, there was evidence of a large right-sided and moderate left-sided pleural effusion with associated compressive atelectasis and a possible soft tissue density in the right distal bronchus. [facility] Medical History COPD (chronic obstructive pulmonary disease) Dementia Home Medications albuterol sulfate 2.5 mg INHALATION Q4H PRN 03/22/21 [History Last Taken Unknown] memantine 10 mg PO BID 03/22/21 [History Last Taken Unknown] pregabalin 100 mg PO BID 03/22/21 [History Last Taken Unknown] oxycodone 5 mg PO Q8H PRN 04/22/21 [History Last Taken Unknown] donepezil 10 mg PO QHS 05/06/21 [History Last Taken Unknown] fluticasone propion-salmeterol 1 inh INHALATION BID 05/06/21 [History Last Taken Unknown] duloxetine [Cymbalta] 30 mg PO DAILY 06/20/21 [History Last Taken Unknown] azithromycin 250 mg PO DAILY 5 Days #5 tab 06/22/21 [Rx Last Taken Unknown] cefpodoxime 200 mg PO Q12H #5 tab 06/22/21 [Rx Last Taken Unknown] guaifenesin [Mucus Relief ER] 1,200 mg PO BID #0 tab 06/22/21 [Rx Last Taken Unknown] metoprolol tartrate 12.5 mg PO BID #0 tab 06/22/21 [Rx Last Taken Unknown] Allergy/AdvReac Type Severity Reaction Status Date / Time Penicillins Allergy PT UNSURE Verified 06/20/21 09:06 OF REACTION tramadol [From Ultram] AdvReac Other Verified 06/20/21 09:06 Family History Other Cancer Heart disease Surgical History (Updated 06/20/21 @ 16:23 by Nayely Teran) H/O: hysterectomy History of back surgery History of hernia repair Social History Smoking Status: Current every day smoker tobacco type: cigarettes ROS Constitutional Constitutional: Reports fatigue, malaise and weakness Eyes Eyes: Denies blurry vision or change in vision ENT HEENT: Denies dizziness, epistaxis, headache(s) or nasal discharge Cardiovascular Cardiovascular: Reports dyspnea; Denies chest pain Respiratory/Chest Respiratory/Chest: Reports dyspnea Gastrointestinal Gastrointestinal: Denies abdominal pain Genitourinary Genitourinary: Denies difficulty urinating or dysuria Musculoskeletal Musculoskeletal: Denies arthralgias or back pain Integumentary Integumentary: Denies lesions, rash or skin ulcer Neurologic Neurologic: Denies abnormal gait Psychiatric Psychiatric: Reports anxiety and depression Endocrine Endocrinology: Reports fatigue Hematologic/Lymphatic Hematologic/Lymphatic: Denies easy bleeding or easy bruising Physical Exam Const alert and no apparent distress Constitutional Narrative: Sitting in bedside recliner. General Appearance: cooperative HEENT normocephalic and head/scalp atraumatic Eyes PERRL, EOMs intact bilaterally and conjunctivae normal Neck supple General: trachea midline Chest inspection of chest normal Resp Auscultation: diminished lung sounds Percussion: dullness Upper: bilateral and Lower: bilateral Cardio S1 normal heart sound and S2 normal heart sound Rate: tachycardic GI normal to inspection, nondistended, normoactive bowel sounds Extremity no clubbing, cyanosis or edema Skin no rashes or lesions noted Neuro moves all extremities and no focal motor deficits Psych Mood & Affect: flat affect Lab / Micro Data Result Diagrams: 06/21/21 05:08 06/21/21 05:08 Labs: Laboratory Results - last 24 hr 06/20/21 08:50: WBC 6.2, RBC 5.14, Hgb 15.8 H, Hct 47.8 H, MCV 93.0, MCH 30.7, MCHC 33.1, RDW Std Deviation 45.8 H, RDW Coeff of Kendall 13.4, Plt Count 285, MPV 9.7, Immature Gran % (Auto) 0.300, Neut % (Auto) 70.5 H, Lymph % (Auto) 17.5 L, Luna % (Auto) 9.0, Eos % (Auto) 2.1, Baso % (Auto) 0.6, Absolute Neuts (auto) 4.4, Absolute Lymphs (auto) 1.09, Nucleated RBC % 0 06/20/21 08:50: PT 12.7, INR 1.0, APTT 32.8, D-Dimer Quant (PE/DVT) 2.30 H* 06/20/21 08:50: Sodium 141, Potassium 4.1, Chloride 105, Carbon Dioxide 31.0, Anion Gap 5, BUN 9, Creatinine 0.80, Estim Creat Clear Calc 48.67, Est GFR (MDRD) Af Amer 91, Est GFR (MDRD) Non-Af 76, BUN/Creatinine Ratio 11.3, Glucose 97, Calcium 9.5, Total Bilirubin 0.40, AST 16, ALT 11 L, Alkaline Phosphatase 96, Troponin I High Sens 7, Total Protein 6.8, Albumin 2.5 L, Globulin 4.3 H, Albumin/Globulin Ratio 0.6 L 06/20/21 08:50: B-Natriuretic Peptide 37.7 06/20/21 09:10: COVID-19 (BEATRIZ) Negative 06/20/21 09:22: Lactic Acid 1.1 06/20/21 09:22: Lactate Dehydrogenase Cancelled, Total Protein Cancelled, Globulin Cancelled, Albumin/Globulin Ratio Cancelled 06/20/21 09:45: Urine Color Yellow, Urine Clarity Sl. Cloudy, Urine pH 6.0, Ur Specific [place] 1.025, Urine Protein Negative, Urine Glucose (UA) Normal, Urine Ketones 5 H, Urine Occult Blood Negative, Urine Nitrite Negative, Urine Bilirubin Negative, Urine Urobilinogen Normal, Ur Leukocyte Esterase 100 H, Urine RBC 0-5 SEEN, Urine WBC 0-5 SEEN, Ur Squamous Epith Cells 0-5 SEEN, Calcium Oxalate Crystal 1+, Urine Bacteria RARE, Urine Mucus 1+ 06/20/21 12:00: Fluid Total Protein Cancelled 06/20/21 12:00: Fluid Source THORACENTESIS, Fluid Color LT YEL, Fluid Appearance SL CLDY, Fluid WBC 0.997, Fluid RBC 603, Fluid Tot Cell Count 1.065 H, Fld Polynuclear WBCs # 0.026, Fld Polynuclear WBCs % 2.6, Fluid Mononuclear WBCs 0.971, Fld Mononuclear WBCs % 97.4, Fluid Neutrophils 3, Fluid Lymphocytes 72, Fluid Monocytes 12, Fluid Macrophages 11, Fld Mesothelial Cells 2, Fl Pathologist Comment May follow, Fluid Comment 2 SEE COMMENT 06/20/21 12:00: Fluid Glucose 99 H, Fluid Total Protein 3.9, Fluid LDH 201 06/20/21 13:45: Troponin I High Sens 7 06/20/21 13:45: Lactate Dehydrogenase 230 06/21/21 05:08: WBC 8.0, RBC 4.69, Hgb 14.1, Hct 43.2, MCV 92.1, MCH 30.1, MCHC 32.6, RDW Std Deviation 45.1 H, RDW Coeff of Kendall 13.3, Plt Count 260, MPV 9.9, Immature Gran % (Auto) 0.500, Neut % (Auto) 75.1 H, Lymph % (Auto) 15.4 L, Luna % (Auto) 7.5, Eos % (Auto) 1.1, Baso % (Auto) 0.4, Absolute Neuts (auto) 6.0, Absolute Lymphs (auto) 1.23, Nucleated RBC % 0 06/21/21 05:08: Sodium 140, Potassium 4.0, Chloride 104, Carbon Dioxide 31.0, Anion Gap 5, BUN 7, Creatinine 0.72, Estim Creat Clear Calc 38.94, Est GFR (MDRD) Af Amer 103, Est GFR (MDRD) Non-Af 85, BUN/Creatinine Ratio 9.7 L, Glucose 94, Calcium 8.8, TSH 1.93 Micro: Microbiology 06/20/21 09:15 Nasal Secretion SARS-CoV-2 Antigen (Rapid) - Final Radiology Impression Chest X-Ray 06/20/21 09:09 IMPRESSION: 1. Large right pleural effusion with underlying parenchymal atelectasis/volume loss. 2. Left pleural effusion with patchy infiltrates or atelectasis at the left lung. Electronically Signed: Garrett Ramon MD ([place]) at 10:26 EDT , Service support , Chest CTA 06/20/21 09:48 IMPRESSION: 1. No central or segmental pulmonary embolism. 2. Very large right and moderate left pleural effusions. 3. Right lower lobe and middle lobe more than upper lobe atelectasis/volume loss. Patchy atelectasis of the left lung. 4. Fluid and soft tissue density in the distal right bronchus. May represent secretions versus endobronchial neoplasm. 5. Soft tissue density surrounding the abdominal aorta and mediastinal adenopathy worrisome for neoplasm such as lymphoma or metastasis. Incompletely visualized. Electronically Signed: Garrett Ramon MD ([place]) at 10:31 EDT , Service support , Thoracentesis Ultrasound 06/20/21 11:20 IMPRESSION: Successful ultrasound-guided right thoracentesis. Electronically Signed: Guilherme Govea MD at 15:24 EDT Tel , Service support , Chest X-Ray 06/20/21 13:03 Echocardiogram 06/20/21 13:11 Interpretation Summary The study was technically difficult. Left ventricular systolic function is hyperdynamic. The estimated ejection fraction is 75 %. There is mild mitral annular calcification. Extension of the mitral annular calcification onto the base of the posterior mitral valve leaflet. Trivial mitral valve insufficiency. Trivial tricuspid valve insufficiency. Mild diffuse aortic valve thickening. Mild focal aortic valve calcification. Trivial pericardial effusion. There are no echocardiographic indications of cardiac tamponade. Echo lucency compatible with a pleural effusion. Right ventricular systolic pressure estimated to be 45 mmHg. No evidence for diastolic dysfunction. Ordering Physician: Vipin Lee Referring Physician: Rehan Connelly Performed By: Francisco Kelley RCS Charges/Coding Visit Charges Inpatient E&M: 94554 Init Hosp L3
[2021-06-21] MEDS: guaiFENesin 1,200 MG Tablet 1200 MG PO ×2 (08:26→21:15)
[2021-06-21] MEDS: Acetaminophen 325 MG Tablet 650 MG PO (08:26)
[2021-06-21] MEDS: Memantine Hydrochloride 10 MG Tablet PO ×2 (08:26→21:15)
[2021-06-21] MEDS: Pregabalin 50 MG Capsule 100 MG PO ×2 (08:26→21:15)
[2021-06-21] MEDS: DULoxetine Hcl 30 MG Capsule PO (08:26)
--- NOTE | 2021-06-21 09:27 | CASEMGMT ---
Addendum entered by Lor Matias 06/21/21 09:34: SW received a call from patient's niece and she confirmed the plan is to return to [place]. Lor PIERRE Original Note: SW called patient's niece/POA and left her a voice mail requesting a return call. ELIJAH wants to confirm the plan is for patient to return to [place]. Lor PIERRE
[2021-06-21] MEDS: Metoprolol Tartrate 25 MG Tablet PO (12:28)
--- NOTE | 2021-06-21 13:54 | CASEMGMT ---
ELIJAH faxed updates to Gretchen with [facility] and let her know that patient may be discharged tomorrow. Plan: d/c back to [facility] under skilled level of care. Lor PIERRE
[2021-06-21 14:14] LABS: Pathologist Comment/Body Fluid Reviewed
--- NOTE | 2021-06-21 15:01 | CHAPLAIN ---
Type of Pastoral Visit _x__ Initial Visit ___ Follow-up Visit ___ On-call Visit ___ General Patient Visit ___ Spiritual Assessment ___ Family Conference ___ Bereavement ___ Rapid Response ___ Code Blue ___ Other (describe below) Pastoral Care Referral From _x__ Patient _x__ Family ___ Nurse ___ Physician ___ Pure Culture Operator ___ Nurse Discharge Planner ___ Other (describe below) Sacrament/Intervention _x__ Active listening ___ Anointing ___ Gnosticist ___ Bereavement ___ Communion _x__ Rae exploration ___ _x__ Life review _x__ Prayer ___ Reconciliation ___ Sacrament of Sick _x__ Supportive presence ___ Wedding ___ Other (describe below) Pastoral Comments patient could report on some life issues but had difficulty answering other questions that were about her current life situation for example why she was in the hospital, how she got here, etc.; pt reports a good rae in God and welcomes prayer and spiritual care support
[2021-06-21 15:20] LABS: Troponin-I HS 6 pg/mL (3.0-54.0)
--- NOTE | 2021-06-21 16:20 | PCM.PN.HOSP ---
Subjective Subjective Patient has sinus tachycardia, heart rate 125/min. Pulse ox 94% on 2 L of oxygen. Patient feels mild shortness of breath. Improved from yesterday Objective Data Objective Data Vital Signs: Vital Signs Temp Pulse Resp BP Pulse Ox 98.5 F 76 16 113/74 94 06/21/21 14:10 06/21/21 15:00 06/21/21 14:10 06/21/21 14:10 06/21/21 14:10 Oxygen Flow Rate (L/min) [3] 5 Oxygen Flow Rate (L/min) [2] 3 Oxygen Flow Rate (L/min) [1 ( 3 Initial Baseline)] Oxygen Flow Rate (L/min) 2 Oxygen Delivery Method [3] Nasal Cannula Oxygen Delivery Method [2] Nasal Cannula Oxygen Delivery Method [1 ( Nasal Cannula Initial Baseline)] Oxygen Delivery Method Nasal Cannula Weight: 114 lb 13.773 oz Body Mass Index (BMI) 21.5 Intake & Output: Intake and Output for Last 24 Hours 06/19/21 06/20/21 06/21/21 23:59 23:59 23:59 Intake Total 400 / 400 360 / 360 Output Total 700 / 700 Balance -300 / -300 360 / 360 Lab / Micro Data Result Diagrams: 06/21/21 05:08 06/21/21 05:08 Labs: Laboratory Results - last 24 hr 06/20/21 12:00: Fl Pathologist Comment Reviewed 06/20/21 13:45: Lactate Dehydrogenase 230 06/21/21 05:08: WBC 8.0, RBC 4.69, Hgb 14.1, Hct 43.2, MCV 92.1, MCH 30.1, MCHC 32.6, RDW Std Deviation 45.1 H, RDW Coeff of Kendall 13.3, Plt Count 260, MPV 9.9, Immature Gran % (Auto) 0.500, Neut % (Auto) 75.1 H, Lymph % (Auto) 15.4 L, [place] % (Auto) 7.5, Eos % (Auto) 1.1, Baso % (Auto) 0.4, Absolute Neuts (auto) 6.0, Absolute Lymphs (auto) 1.23, Nucleated RBC % 0 06/21/21 05:08: Sodium 140, Potassium 4.0, Chloride 104, Carbon Dioxide 31.0, Anion Gap 5, BUN 7, Creatinine 0.72, Estim Creat Clear Calc 38.94, Est GFR (MDRD) Af Amer 103, Est GFR (MDRD) Non-Af 85, BUN/Creatinine Ratio 9.7 L, Glucose 94, Calcium 8.8, TSH 1.93 06/21/21 05:08: Troponin I High Sens 6 Micro: Microbiology 06/20/21 12:00 Fluid - Thoracentesis Fluid Gram Stain - Final 06/20/21 12:00 Fluid - Thoracentesis Fluid Body Fluid Culture - Preliminary No growth-Final to follow 06/20/21 09:45 Urine, Clean Catch Urine Culture - Final Mixed Gram Pos & Gram Neg Org 06/20/21 09:15 Nasal Secretion SARS-CoV-2 Antigen (Rapid) - Final Radiography Diagnostic Testing: Radiology Impression Echocardiogram 06/20/21 13:11 Interpretation Summary The study was technically difficult. Left ventricular systolic function is hyperdynamic. The estimated ejection fraction is 75 %. There is mild mitral annular calcification. Extension of the mitral annular calcification onto the base of the posterior mitral valve leaflet. Trivial mitral valve insufficiency. Trivial tricuspid valve insufficiency. Mild diffuse aortic valve thickening. Mild focal aortic valve calcification. Trivial pericardial effusion. There are no echocardiographic indications of cardiac tamponade. Echo lucency compatible with a pleural effusion. Right ventricular systolic pressure estimated to be 45 mmHg. No evidence for diastolic dysfunction. Ordering Physician: Vipin Lee Referring Physician: Rehan Connelly Performed By: Francisco Kelley RCS Physical Exam Narrative General: Forgetfulness. Awake. Oriented x2 HEENT: Atraumatic, PERRLA, EOMI, Normocephalic Oral: No Gingival or Mucosal Lesions/ Ulcerations Neck: Supple, No JVD, Negative Carotid Bruits Lungs: Air entry diminished on both sides more significantly on the right side. Expiratory rhonchi and wheezing present. Cardiovascular: Sinus tachycardia, Normal S1, Normal S2, LLSB systolic murmur present Abdomen: Bowel Sounds Present, Soft, Non Tender, Non-Distended : No renal angle tenderness. No suprapubic tenderness. Extremities: No edema, Capillary Refill Less than 3 Seconds Skin: No rashes, No breakdown Musculoskeletal: Mild loss of muscles of extremities. No Tenderness to Palpation of Joints or Extremities Neurological: Cranial nerves II-XII grossly intact, DTR 2+/4 and Symmetrical, Neuro grossly intact Psych/Mental Status: Short of breath. Assessment & Plan Assessment/Plan (1) Pleural effusion: PLAN: 70-year-old female came from senior living for shortness of breath and found to have bilateral pleural effusion. 1. Bilateral, right large left moderate pleural effusion: Patient is being admitted in PCU. Therapeutic right-sided thoracocentesis ordered. Discussed with the irrigation tax assessor collector and consulted. BNP negative. 2D echo is ordered to rule out heart failure. As per radiologist, there is mediastinal lymphadenopathy largest measuring 1.9 x 1.7 cm. 06/21: Discussed with irrigation tax assessor collector and consult appreciated. Soft tissues density in distal right bronchus, suspicious of endobronchial lesion and patient was offered bronchoscopy but she refused. Patient had 800 mL ultrasound-guided thoracocentesis of right side. Repeat chest x-ray does not show pneumothorax. Pleural fluid is exudative in nature. Cultures and cytology are pending. Prelim Gram stain is negative shows no organisms 3+ white blood cell. In the meantime, continue antibiotic and supportive measures until pleural fluid cultures are negative. 2D echo shows EF 75%, LV function hyperdynamic. Mitral annular calcification, trivial MR, TR with diffuse aortic valve thickening. RVSP 45 NG sensitive of moderate pulmonary hypertension. No evidence of diastolic dysfunction. 2. Possible COPD: Patient does not seem to have PFT but has prolonged history of smoking since teenage and COPD mentioned in problem list. Continue home inhaler along with DuoNeb as needed. Incentive spirometry. Mucinex . COVID-19 ruled out. Does not seem to be in acute exacerbation. 3. Sinus tachycardia, unclear cause probably respiratory related or DuoNeb: Started on low-dose metoprolol 12.5 mg p.o. twice daily. DuoNeb changed to as needed. Dementia: Mild tremors dementia: On Aricept and memantine 4. Chronic smoking: Patient states she wants to continue with smoking. Smoking cessation advised Living will/advanced directive/end of life care: Patient does not have living will or advanced directive. She does not have son daughter or . Her closest niece is Ms. Rashmi Enriquez. After discussion of benefits/risks procedures involved with full code, DNR CC arrest and DNR CC, the patient opted for DNR-CC Arrest with no intubation Patient does not want artificial life support including intubation, tube feed, ventilator and/chest compression, central venous catheter, vasopressor and DC shock if needed Total time spent in [id number] encounter in discussion of advanced directive 16 minutes. Charges/Coding Visit Charges Inpatient E&M: 65699 Subs Hosp L2
[2021-06-21] MEDS: Ceftriaxone 1 GM/50 ML BAG IV (17:13)
[2021-06-21] MEDS: 0.9% Saline Lock 10 ML Syringe IV (17:15)
[2021-06-21] MEDS: Metoprolol Tartrate 25 MG Tablet 12.5 MG PO (21:16)
[2021-06-21] MEDS: Donepezil HCl 10 MG Tablet PO (21:16)
[2021-06-22] VITALS (8 sets, daily range): BP systolic 115–133; BP diastolic 71–87; PULSE 94–110; RESP 18–22; TEMP 36.2–36.7; O2SAT 90–94
[2021-06-22] MEDS: Albuterol 2.5 MG/3 ML VIAL.NEB. INHALATION ×2 (02:30→07:18)
[2021-06-22] MEDS: Benzonatate 100 MG Capsule PO (02:31)
[2021-06-22] MEDS: Budesonide Respules 0.5 MG/2 ML AMPUL.NEB. INHALATION (07:18)
[2021-06-22] MEDS: DULoxetine Hcl 30 MG Capsule PO (09:37)
[2021-06-22] MEDS: 0.9% Saline Lock 10 ML Syringe IV (09:37)
[2021-06-22] MEDS: guaiFENesin 1,200 MG Tablet 1200 MG PO (09:37)
[2021-06-22] MEDS: Metoprolol Tartrate 25 MG Tablet 12.5 MG PO (09:37)
[2021-06-22] MEDS: Pregabalin 50 MG Capsule 100 MG PO (09:37)
[2021-06-22] MEDS: Memantine Hydrochloride 10 MG Tablet PO (09:38)
[2021-06-22] MEDS: Ceftriaxone 1 GM/50 ML BAG IV (09:43)
--- NOTE | 2021-06-22 10:25 | PCM.TXEXTCAR ---
Diet 06/20/21 17:24 Diet: Regular - General Is pt able to select menu?: No Routine Orders/Code Status O2 Liters per Minute: 5 Keep PO Greater than or Equal to (%): 90 Routine Lab Work: CBC and BMP Code Status: DNRCC-A (no intubation) Wound(s) R Flank: Wound Type: Puncture Problem/Diagnosis (1) Pleural effusion: Status: Acute Allergies/Procedures Done in Hospital Allergies Penicillins Allergy (Verified 06/20/21 09:06) PT UNSURE OF REACTION tramadol [From [facility]] Adverse Reaction (Verified 06/20/21 09:06) Other increased agitation Type of Care/Length of Stay Estimated LOS: More Than 30 Days Type of Care Needed: Inpt Hospice Facility Rehab Potential: Fair Prognosis: Fair Additional Orders/Day of Discharge Day of Discharge: 06/22/21 Dietary and Speech Recommendations Dietitian Recommendations/Changes: Noted pt to be NPO at midnight, once po diet resumes, rec liberal Regular diet Discharge Plan Admission Admit Date/Time: 06/20/21 12:05 Primary Reason for Your Visit: pleural effusion Attending Provider: Wilmer Gilliland Primary Care Provider: Rehan Connelly Consulting Providers: Zay Powell ; Sudhir Swain ; Jennifer Porter [employer] Discharge Orders/Prescriptions Prescriptions: New Mucus Relief ER 1,200 mg Tablet Extended Release 12hr 1,200 mg PO BID Qty: 0 RF: 0 metoprolol tartrate 25 mg Tablet 12.5 mg PO BID Qty: 0 RF: 0 cefpodoxime 200 mg tablet 200 mg PO Q12H Qty: 5 RF: 0 azithromycin 250 mg tablet 250 mg PO DAILY 5 Days Qty: 5 RF: 0 Continued albuterol sulfate 2.5 mg /3 mL (0.083 %) Solution For Nebulization 2.5 mg INHALATION Q4H PRN (Reason: Wheezing) RF: 0 memantine 5 mg tablet 10 mg PO BID RF: 0 pregabalin 100 mg capsule 100 mg PO BID RF: 0 oxycodone 5 mg Capsule 5 mg PO Q8H PRN (Reason: Pain) RF: 0 fluticasone propion-salmeterol 250-50 mcg/dose Blister With Device 1 inh INHALATION BID RF: 0 donepezil 10 mg Tablet 10 mg PO QHS RF: 0 duloxetine [Cymbalta] 30 mg Capsule,Delayed Release(Dr/Ec) 30 mg PO DAILY RF: 0 Discontinued alprazolam [Xanax] 1 mg Tablet 1 mg PO TID RF: 0 Referrals / Follow Up: Sudhir Swain DO [STAFF PHYSICIAN] - Within 2 Weeks Rehan Connelly DO [Primary Care Provider] - Within 2 Weeks Disposition Disposition (needs filled in before D/C Order can be placed): Shelter Facility
--- NOTE | 2021-06-22 10:40 | DS.PCM_ITS ---
Providers Date of Admission: 06/20/21 Primary Care Physician: Dr. Rehan Connelly, DO Consultations 06/20/21 12:18 Consult: Theater Technician / Pulmonary Medicine Routine Consulting Provider: Pulmonary Medicine amado Saavedra Reason for Consult: B/L pleural effusion, COPD, Right hilar mass? EMERGENT Consult: No MD Notified: Yes Date Notified: 06/20/21 Time Notified: 11:30 Method of Notification: Verbal Reason For Visit: HYPOXIC RESPIRATORY FAILURE Diagnosis Discharge Diagnosis (1) Pleural effusion: Status: Acute Code(s): J90 - Pleural effusion, not elsewhere classified Medications at Discharge Home Medications albuterol sulfate 2.5 mg INHALATION Q4H PRN 03/22/21 memantine 10 mg PO BID 03/22/21 pregabalin 100 mg PO BID 03/22/21 oxycodone 5 mg PO Q8H PRN 04/22/21 donepezil 10 mg PO QHS 05/06/21 fluticasone propion-salmeterol 1 inh INHALATION BID 05/06/21 duloxetine [Cymbalta] 30 mg PO DAILY 06/20/21 azithromycin 250 mg PO DAILY 5 Days #5 tab 06/22/21 cefpodoxime 200 mg PO Q12H #5 tab 06/22/21 guaifenesin [Mucus Relief ER] 1,200 mg PO BID #0 tab 06/22/21 metoprolol tartrate 12.5 mg PO BID #0 tab 06/22/21 Hospital Course Operations None Procedures Thoracentesis Summary of Care Provided Minutes Spent on Discharge: 32 Hospital Course: 71-year-old female presents with shortness of breath. Patient was found to have a very large right pleural effusion. Patient was started on broad-spectrum antibiotics and she underwent a ultrasound-guided thoracentesis. Patient had removed 800 cc of fluid. The fluid came back showing exudative parameters. The concern is that this could be related with pneumonia or malignancy. Patient was seen in consultation by pulmonology who advised broncho scopy but the patient has declined. Discussed with the patient that this would help elucidate if this is lung cancer and that she could be potentially treated with chemotherapy or radiation therapy if it is confirmed to be lung cancer or cancer with pulmonary metastasis. She continues to decline. Explained patient that her pleural effusion could continue to increase where she may require further thoracentesis. If she continues to have this that may be advisable for her to proceed with having a permanent catheter placed for drainage and palliative measures. Patient still does not want to have bronchoscopy at this time. Will continue with antibiotics for 5 more days. Patient will be dis charged back to [place]. Physical Exam Const alert General Appearance: cooperative Resp Resp Narrative: Coarse breath sounds bilaterally Weight / BMI Weight Weight: 51.4 kg Body Mass Index (BMI) 21.5 ABG / Lab / Microbiology Data Result Diagrams: 06/21/21 05:08 06/21/21 05:08 Laboratory: Laboratory Results - last 24 hr 06/20/21 12:00: Fl Pathologist Comment Reviewed 06/21/21 05:08: Troponin I High Sens 6 Microbiology: Microbiology 06/20/21 09:22 Blood Culture (Wb) - Anticubital Right Blood Culture - Preliminary No growth in 48 hours. 06/20/21 09:25 Blood Culture (Wb) - Left Wrist Blood Culture - Preliminary No growth in 48 hours. 06/20/21 12:00 Fluid - Thoracentesis Fluid Gram Stain - Final 06/20/21 12:00 Fluid - Thoracentesis Fluid Body Fluid Culture - Preliminary No growth-Final to follow 06/20/21 12:00 Fluid - Thoracentesis Fluid Anaerobic Culture - Preliminary No growth in 48 hours. 06/20/21 09:45 Urine, Clean Catch Urine Culture - Final Mixed Gram Pos & Gram Neg Org 06/20/21 09:15 Nasal Secretion SARS-CoV-2 Antigen (Rapid) - Final D/C Instructions Discharge Diet: No restrictions Meaningful Use Info Meaningful Use Diagnoses (Choose all that apply): None applicable Discharge Plan Admission Admit Date/Time: 06/20/21 12:05 Primary Reason for Your Visit: pleural effusion Attending Provider: Wilmer Gilliland Primary Care Provider: Rehan Connelly Consulting Providers: Zay Powell ; Sudhir Swain ; Jennifer Porter CHECKERING MACHINE ADJUSTER Discharge Orders/Prescriptions Prescriptions: New Mucus Relief ER 1,200 mg Tablet Extended Release 12hr 1,200 mg PO BID Qty: 0 RF: 0 metoprolol tartrate 25 mg Tablet 12.5 mg PO BID Qty: 0 RF: 0 cefpodoxime 200 mg tablet 200 mg PO Q12H Qty: 5 RF: 0 azithromycin 250 mg tablet 250 mg PO DAILY 5 Days Qty: 5 RF: 0 Continued albuterol sulfate 2.5 mg /3 mL (0.083 %) Solution For Nebulization 2.5 mg INHALATION Q4H PRN (Reason: Wheezing) RF: 0 memantine 5 mg tablet 10 mg PO BID RF: 0 pregabalin 100 mg capsule 100 mg PO BID RF: 0 oxycodone 5 mg Capsule 5 mg PO Q8H PRN (Reason: Pain) RF: 0 fluticasone propion-salmeterol 250-50 mcg/dose Blister With Device 1 inh INHALATION BID RF: 0 donepezil 10 mg Tablet 10 mg PO QHS RF: 0 duloxetine [Cymbalta] 30 mg Capsule,Delayed Release(Dr/Ec) 30 mg PO DAILY RF: 0 Discontinued alprazolam [Xanax] 1 mg Tablet 1 mg PO TID RF: 0 Referrals / Follow Up: Sudhir Swain DO [STAFF PHYSICIAN] - Within 2 Weeks Rehan Connelly DO [Primary Care Provider] - Within 2 Weeks Disposition Disposition (needs filled in before D/C Order can be placed): Nursing Home Facility Charges/Coding Visit Charges Inpatient E&M: 05247 Disch Hosp
--- NOTE | 2021-06-22 10:40 | CASEMGMT ---
Social Work Per Dr. Gilliland, patient medically cleared for discharge today. Plan is for patient to return to [facility] under skilled care. Telephone call to Gretchen Mcmillan. Gretchen confirms to be able to accept patient back and that patient will admit under skilled care. Telephone call to patient teeteeroxana Rashmi ([facility])Rashmi agreeable to above plan. Met with patient in room. Patient agreeable to all discharge planning. Transportation set up for 2:00pm through [facility]. Transportation form completed and placed with patient discharge information. Will fax discharge information when obtained. Proposed discharge date: 06/22/2021 Disposition: [facility] under skilled care. Sydnee MORRISSEY, COURTNEYS
--- NOTE | 2021-06-22 12:11 | NURSING ---
Report called for pt to be d/c back to [facility]. Spoke to nurse Nancy.
--- NOTE | 2021-06-22 12:50 | CASEMGMT ---
Social Work Discharge information, signed medication list, COVID test results faxed to [facility]. Proposed discharge date: 06/22/2021 Disposition: skilled. Sydnee Mcmillan, SHARON.
[2021-06-22 16:50] LABS: pH, Body Fluid 11254 7.6 (Not Estab.)
== END 2021-06-22 14:30 | disposition skilled nursing facility (03) | DRG 194 ==
LOC: ED 11:49 → PCU 11:55
PROVIDERS: Internal Medicine Critical Care Medicine; Admitting Provider Internal Medicine; Emergency Provider Student in an Organized Health Care Education/Training Program; PCP Family Medicine
DX: J18.9 Pneumonia, unspecified organism (principal); J91.8 Pleural effusion in other conditions classified elsewhere; J44.9 Chronic obstructive pulmonary disease, unspecified; R00.0 Tachycardia, unspecified; Z20.822 Contact with and (suspected) exposure to COVID-19; R09.02 Hypoxemia; M54.50 Low back pain, unspecified; G89.29 Other chronic pain; G30.9 Alzheimer's disease, unspecified; F02.80 Dementia in other diseases classified elsewhere, unspecified severity, without behavioral disturbance, psychotic disturbance, mood disturbance, and anxiety; F17.210 Nicotine dependence, cigarettes, uncomplicated; Z79.899 Other long term (current) drug therapy
CPT/HCPCS: 32555; 36415; 71045; 71046; 71275; 80048; 80053; 81001; 82945; 83605; 83615; 83880; 83986; 84156; 84157; 84443; 84484; 85025; 85379; 85610; 85730; 87040; 87070; 87075; 87086; 87088; 87205; 87426; 87635; 88108; 88305; 88313; 88341; 88342; 89050; 93005; 93306; 94640; 94667; 94668; 97162; 97166; 99251; 99285; 99406; Q9957; Q9967; U0005; A4216; G0463; J3490; U0003

== ENCOUNTER 2021-07-13 07:11 | Emergency (ER) | payer MEDICARE, MEDICAID, SELFPAY ==
[2021-07-13 07:12] VITALS: BP 175/97; PULSE 125; RESP 28; TEMP 36.2; O2SAT 96; BMI 24.0
--- NOTE | 2021-07-13 07:16 | RAD_ITS ---
EXAM: XR CHEST, 1 VIEW : 1950 CLINICAL INDICATION: dyspnea TECHNIQUE: Frontal view of the chest. This report was created using [employer] report generation technology. COMPARISON: 06/20/21 FINDINGS: LUNGS AND PLEURAL SPACES: Large pleural effusions and bilateral pulmonary infiltrates. No pneumothorax. HEART: Unremarkable. Cardiac silhouette not enlarged. MEDIASTINUM: Central airways and mediastinal contour are unremarkable. BONES/JOINTS: Unremarkable. SOFT TISSUES: Unremarkable. RAD/Chest 1 View (Portable) IMPRESSION: Large pleural effusions and bilateral pulmonary infiltrates. Findings may indicate atelectasis or pneumonia. at 0742 Reported and signed by: Fausto Benz MD Electronically Signed: Fausto Benz MD at 7:42 EDT Tel , Service support ,
--- NOTE | 2021-07-13 07:25 | ED.VIS.DYS ---
HPI History of Present Illness Chief Complaint: Shortness of Breath Informant: family, EMS and SNF Narrative Narrative: 71-year-old female presents to the emergency department with labored breathing. Reportedly the patient was doing fine during the night was found to be noticeably dyspneic this morning by nursing. She was transported by EMS. Patient recently admitted into the hospital with a exudative large effusion. Patient continued to decline and was placed on palliative measures. EMS paperwork shows DNR comfort care only. I did speak directly with the patient's primary contact who is her niece who confirms her wishes and she wishes to be comfortable. [facility] Medical History COPD (chronic obstructive pulmonary disease) Dementia Home Medications albuterol sulfate 2.5 mg INHALATION Q4H PRN 03/22/21 [History Last Taken Unknown] memantine 10 mg PO BID 03/22/21 [History Last Taken Unknown] pregabalin 100 mg PO BID 03/22/21 [History Last Taken Unknown] oxycodone 5 mg PO Q8H PRN 04/22/21 [History Last Taken Unknown] donepezil 10 mg PO QHS 05/06/21 [History Last Taken Unknown] fluticasone propion-salmeterol 1 inh INHALATION BID 05/06/21 [History Last Taken Unknown] duloxetine [Cymbalta] 60 mg PO DAILY 06/20/21 [History Last Taken Unknown] azithromycin 250 mg PO DAILY 5 Days #5 tab 06/22/21 [Rx Last Taken Unknown] guaifenesin [Mucus Relief ER] 1,200 mg PO BID #0 tab 06/22/21 [Rx Last Taken Unknown] metoprolol tartrate 12.5 mg PO BID #0 tab 06/22/21 [Rx Last Taken Unknown] bisacodyl 10 mg PA DAILY PRN 07/13/21 [History Last Taken Unknown] furosemide 20 mg PO BID 07/13/21 [History Last Taken Unknown] magnesium hydroxide [Milk of Magnesia] 30 ml PO DAILY PRN 07/13/21 [History Last Taken Unknown] menthol [Biofreeze (menthol)] 1 applic TOPICAL TID PRN 07/13/21 [History Last Taken Unknown] mineral oil [Enema] 118 ml PA DAILY PRN 07/13/21 [History Last Taken Unknown] potassium chloride 10 meq PO DAILY 07/13/21 [History Last Taken Unknown] prednisone 40 mg PO DAILY 07/13/21 [History Last Taken Unknown] Allergy/AdvReac Type Severity Reaction Status Date / Time Penicillins Allergy PT UNSURE Verified 07/13/21 07:16 OF REACTION tramadol [From Ultram] AdvReac Other Verified 07/13/21 07:16 Family History Other Cancer Heart disease Surgical History H/O: hysterectomy History of back surgery History of hernia repair Social History (Updated 07/13/21 @ 07:[address] Emery Weber DO) Smoking Status: Unknown if ever smoked substance use type: does not use ROS ROS ED Review of Systems ROS Unobtainable: due to mental status EXAM Physical Exam Const Vital Signs: 07/13/21 07:12 07/13/21 07:17 07/13/21 07:43 Temperature 97.1 F L Temperature Source Temporal Pulse Rate 125 H Respiratory Rate 28 H Respiratory Effort Agonal Respiratory Pattern Rios-Draper Blood Pressure 175/97 H Blood Pressure Mean 123 Pulse Ox 96 40 Oxygen Delivery Method Non-Rebreather Room Air Oxygen Flow Rate (L/min) 10 07/13/21 07:48 Temperature Temperature Source Pulse Rate 49 L Respiratory Rate 10 L Respiratory Effort Respiratory Pattern Blood Pressure 46/36 L Blood Pressure Mean 39 Pulse Ox 54 Oxygen Delivery Method Room Air Oxygen Flow Rate (L/min) Positive cachectic General Appearance ED: cachectic and pallor Nutritional Appearance: cachectic HEENT Reports normocephalic, head/scalp atraumatic, TM's clear and dry mucous membranes atraumatic Tympanic Membrane ED: Yes TM's clear Mouth ED: Yes dry mucous membranes Mouth: dry mucous membranes Eyes PERRL and EOMs intact bilaterally Neck no lymphadenopathy, supple and no JVD Resp Resp Narrative: Patient has agonal respirations Auscultation: rales and wheezes expiratory wheezes Cardio regular rhythm and no murmurs Rate: tachycardic GI normal to inspection, nondistended, normoactive bowel sounds and non-tender Palpation: soft Back/Spine no CVA tenderness and normal ROM Extremity normal to inspection General Extremety ED: Negative for edema General Extremity: Negative for edema Neuro CN's II-XII intact bilaterally Sensorium / Orientation: lethargic Motor Exam: strength 5/5 throughout Skin no rashes or lesions noted General Skin Exam: pallor Trauma: Negative for laceration MDM MDM MDM Narrative Medical decision making narrative: My interpretation of the chest x-ray is bilateral pleural effusions with pulmonary edema. I spoke with the patient's primary point of contact her niece who confirms her wishes to be made comfortable. Patient received morphine Ativan and Robinul. The patient continued agonal breathing and eventually bradycardia cardia was noted on the monitor followed by asystole. She was pronounced at 0751. Radiography Diagnostic Testing: Clinical Impression(s) from Imaging Studies Chest X-Ray 07/13/21 07:16 IMPRESSION: Large pleural effusions and bilateral pulmonary infiltrates. Findings may indicate atelectasis or pneumonia. at 0742 Reported and signed by: Fausto Benz MD Electronically Signed: Fausto Benz MD at 7:42 EDT Tel , Service support , Discharge Plan Triage Chief Complaint: Shortness of Breath ED Provider: Emery Weber Dx/Rx/DC Orders Clinical Impression: Pleural effusion, Dementia, Acute hypoxemic respiratory failure Prescriptions: No Action albuterol sulfate 2.5 mg /3 mL (0.083 %) Solution For Nebulization 2.5 mg INHALATION Q4H PRN (Reason: Wheezing) RF: 0 memantine 5 mg tablet 10 mg PO BID RF: 0 pregabalin 100 mg capsule 100 mg PO BID RF: 0 oxycodone 5 mg Capsule 5 mg PO Q8H PRN (Reason: Pain) RF: 0 fluticasone propion-salmeterol 250-50 mcg/dose Blister With Device 1 inh INHALATION BID RF: 0 donepezil 10 mg Tablet 10 mg PO QHS RF: 0 duloxetine [Cymbalta] 30 mg Capsule,Delayed Release(Dr/Ec) 60 mg PO DAILY RF: 0 Mucus Relief ER 1,200 mg Tablet Extended Release 12hr 1,200 mg PO BID Qty: 0 RF: 0 metoprolol tartrate 25 mg Tablet 12.5 mg PO BID Qty: 0 RF: 0 azithromycin 250 mg tablet 250 mg PO DAILY 5 Days Qty: 5 RF: 0 prednisone 20 mg Tablet 40 mg PO DAILY RF: 0 potassium chloride 10 mEq Tablet Extended Release 10 meq PO DAILY RF: 0 mineral oil [Enema] Enema 118 ml PA DAILY PRN (Reason: Constipation) RF: 0 magnesium hydroxide [Milk of Magnesia] 400 mg/5 mL Suspension 30 ml PO DAILY PRN (Reason: Constipation) RF: 0 bisacodyl 10 mg Suppository 10 mg PA DAILY PRN (Reason: CONSTIPATION) RF: 0 furosemide 20 mg Tablet 20 mg PO BID RF: 0 Biofreeze (menthol) 4 % Gel 1 applic TOPICAL TID PRN (Reason: LOW BACK PAIN) RF: 0 Primary Care Provider: Rehan Connelly Referrals: Rehan Connelly DO [Primary Care Provider] - Disposition Disposition: Date/Time: 07/13/21 07:51
[2021-07-13] MEDS: Ondansetron 4 MG/2 ML Vial IV (07:33)
[2021-07-13] MEDS: LORazepam 2 MG/ML Syringe 0.5 MG IV (07:33)
[2021-07-13] MEDS: Morphine 2 MG/ML Syringe IV (07:33)
--- NOTE | 2021-07-13 07:41 | ED.RN ---
pt with agonal cheynne loera respirations, pt removed from 2l nc as ordered per dr. elliott. bp 88/66, hr 134, rr 32, spo2 40% ra.
[2021-07-13 07:43] VITALS: O2SAT 40
--- NOTE | 2021-07-13 07:43 | ED.RN ---
PT COVERED WITH WARM BLANKETS, PLACED IN A POSITION OF COMFORT. HR DROPPING FROM [address] ATKINSON INFORMED.
[2021-07-13 07:48] VITALS: BP 46/36; PULSE 49; RESP 10; O2SAT 54
--- NOTE | 2021-07-13 07:53 | ED.RN ---
AT 0751, PT WITH ASYSTOLE ON MONITOR, NO PALPABLE PULSE, NO HEART SOUNDS ON AUSCULTATION. DR. ATKINSON AT BEDSIDE WITH PT. TOD 0751.
== END 2021-07-13 09:52 ==
PROVIDERS: Emergency Provider Emergency Medicine; PCP Family Medicine
DX: J90 Pleural effusion, not elsewhere classified (principal); J96.01 Acute respiratory failure with hypoxia; J81.1 Chronic pulmonary edema; Z66 Do not resuscitate; Z51.5 Encounter for palliative care; J44.9 Chronic obstructive pulmonary disease, unspecified; F03.90 Unspecified dementia, unspecified severity, without behavioral disturbance, psychotic disturbance, mood disturbance, and anxiety; Z79.51 Long term (current) use of inhaled steroids; Z79.52 Long term (current) use of systemic steroids; Z79.899 Other long term (current) drug therapy
CPT/HCPCS: 71045; 96374; 96375; 99285; J7040; A4216; J2405